=== PATIENT | female | born 1945 | race Caucasian/White ===

== ENCOUNTER 2021-12-13 15:33 | Inpatient (IN) | payer MEDICARE, SELFPAY ==
[2021-12-13 15:46] VITALS: BP 95/57; PULSE 72; RESP 19; TEMP 36.9; O2SAT 96
[2021-12-13 16:27] LABS: Abs Immature Grans 0.05 10^3/uL (0.0-0.06); Absolute Basophil Count 0.06 10^3/uL (0.0-0.2); Absolute Eosinophil Count 0.14 10^3/uL (0.0-0.7); Absolute Lymphocyte Count 2.36 10^3/uL (1.2-3.4); Absolute Monocyte Count 1.14 10^3/uL (0.1-0.8); Basophils % 0.5; Eosinophils % 1.1; HCT 32.8 % (36.0-46.0); HGB 10.7 g/dL (11.2-15.7); Immature Grans % 0.4; Lymphocytes % 18.4; MCHC 32.6 % (32.0-36.0); MCV 89 fL (80-95); MPV 9.7 fL (8.0-11.0); Monocytes % 8.9; Neutrophils % 70.7; Platelet Count 306 10^3/uL (130-400); RBC 3.69 10^6/uL (3.93-5.22); RDW 11.9 % (11.7-14.6); RDW-SD 38.1 fL; WBC 12.82 10^3/uL (4.4-10.8)
--- NOTE | 2021-12-13 16:30 | DI.CT_ITS ---
Exam(s) CT ABDOMEN PELVIS W EXAM: CT ABDOMEN PELVIS W CLINICAL HISTORY: diffuse abd pain, urinary frequency TECHNIQUE: Imaging Protocol: Axial computed tomography images with coronal and sagittal reformatted images were created and reviewed CONTRAST MATERIAL: Intravenous: Omnipaque 350 Contrast volume:100 mL Oral: No COMPARISON: No exams were available for comparison FINDINGS: ABDOMEN: Lung Bases: Atelectasis or scarring is seen in the lung bases. Liver: Normal density. No measurable mass. Portal, Superior Mesenteric, and Splenic Veins: Unremarkable. Gallbladder and Biliary Tract: Status post cholecystectomy. There is intra and extrahepatic biliary ductal dilatation. The common bile duct measures up to 1.2 cm. Pancreas: Normal density, no abnormal calcifications or inflammatory process. Spleen: Normal. Adrenals: No masses seen. Kidneys: Normal size, contour and axis. No radiodense stones or obstructive uropathy. There are few t iny hypodensities in the kidneys. They are too small for further characterization but likely reflect small cysts. No follow-up is recommended. Abdominal Aorta: Abdominal portion non-dilated. There is atherosclerosis present. Bowel: There is a thick-walled fluid collection in the right lower quadrant containing fluid and air. It does not appear to communicate with bowel. Surrounding inflammatory changes are seen. This is suspicious for an abscess. There is a thick-walled elongated tubular structure in the right lower qu adrant best appreciated on the coronal views which may represent an enlarged abnormal appendix. (Ser ies 5, images 37-47.). This may also possibly represent an inflamed terminal ileum. Peritoneal Cavity: There is a small amount of free fluid in the pelvis. Lymph Nodes: There is enlarged 2.1 cm left inguinal lymph node. Bones: Within normal limits for the patient's age. Soft Tissues: Unremarkable. PELVIS: Bladder: There is thickening of the wall of the urinary bladder. Reproductive Organs: The patient is status post hysterectomy. Lymph Nodes: Within normal limits. Bones: Within normal limits for the patient's age. IMPRESSION: Findings suspicious for an acute appendicitis with a large abscess in the right lower quadrant. Diff erential considerations include terminal ileitis.. RADIATION DOSE DELIVERED: 736.36mGy.cm Total DLP DATA REPOSITORY: All CT scans at this facility are submitted to the National Radiology Data Registry (NRDR) Dose Index Registry (DIR) with the [employer] (A[employer]). RADIATION OPTIMIZATION: All CT scans at this facility use at least one of these dose optimization te chniques: automated exposure control; mA and/or kV adjustment per patient size (includes targeted exa ms where dose is matched to clinical indication); or iterative reconstruction.
[2021-12-13 16:33] LABS: Absolute Neutrophil Count 9.06 10^3/uL (1.2-6.7)
[2021-12-13 16:43] LABS: ALT 15 U/L (14-59); AST 14 U/L (15-37); Albumin 3.4 g/dL (3.4-5.0); Alkaline Phosphatase 104 U/L (46-116); BUN 15 mg/dL (7-18); Bilirubin, Total 0.4 mg/dL (0.2-1.0); CREATININE 0.8 mg/dL (0.55-1.02); Calcium 9.1 mg/dL (8.5-10.1); Chloride 100 mmol/L (98-107); Estimated GFR 77.27 (mL/min/1.73m2); Glucose 101 mg/dL (74-106); Lipase 109 U/L (73-393); Potassium 4.2 mmol/L (3.5-5.1); Sodium 135 mmol/L (136-145); Total Protein 6.8 g/dL (6.4-8.2)
[2021-12-13] MEDS: ACETAMINOPHEN 1,000 MG/100 ML BTL 400 MG IVPB ×2 (16:51→23:44)
[2021-12-13] MEDS: Normal Saline 1,000 ML 1000 ML IV (16:52)
[2021-12-13] MEDS: Normal Saline Flush 10 ML SYR IVP ×5 (17:25→23:28)
[2021-12-13] MEDS: Omnipaque 350 MG/ML 100 ML BTL IJ (17:25)
--- NOTE | 2021-12-13 18:34 | W.ED.GENAD ---
Discharge Plan Disposition Patient Disposition: [facility]IENT Condition: Stable Discharge Details Clinical Impression: Acute perforated appendicitis Admit Date/Time: 12/13/21 19:30 Admit Provider: Melanie Farah Attending Provider: Melanie Farah Primary Care Provider: Tonya,[facility] ED Provider: Francis Delacruz Discharge Data Discharge Date/Time-TO BE ENTERED AT DEPARTURE: 12/13/21 20:25 Medical Decision Making 1550 -- 76-year-old female with a history of hysterectomy, cholecystectomy, bladder lift, chronic back pain and fibromyalgia chronically on opiates for the past 10 years presents with lower abdominal pain and urinary frequency for the past 10 days. She does admit to a feeling of urethral prolapse when having a bowel movement but denies any protrusion of tissue. Blood pressure hypertensive on arrival, 95/57. She is afebrile and appears comfortable and nontoxic. Abdomen is soft but tender across the lower quadrants. She has no CVA tenderness. Differential diagnosis includes UTI, pyelonephritis, diverticulitis, appendicitis, small bowel obstruction, colitis, gastroenteritis. We will place an IV, bolus IV fluids, screening labs, urinalysis, CT abdomen and pelvis and give a dose of IV Tylenol and reassess. Patient attempted to give a urine sample here but missed the hat. Patient states she did give a urine sample at the [facility] today which on review appears unremarkable. 1800 --labs reviewed. White blood cell count 12. Normal lipase. Patient is requesting to go home. Discussed with patient that we are awaiting her CT scan read. Patient dressed herself and states she does not want to try in the hospital as needed. She is willing to wait for the CT results. 1850 --CT reviewed and notes a possible perforated appendix. Results discussed with patient and she is agreeable to stay for admission. Dose of IV Zosyn and Dilaudid ordered. Will contact Dr. Farah. 1939 --Dr. Farah reviewed the imaging and could be consistent with a perforated appendicitis. She accepts patient for admission. Will likely plan for OR in the morning as will likely require laparotomy. Patient's vitals have remained stable. Her blood pressure is slightly soft at 105/66. Plan discussed with patient and daughter at bedside and they are agreeable. Daughter states that patient's blood pressure is usually low. Daughter and patient states that she had a recent catheterization at [facility] in [facility] which was unremarkable and performed after an abnormal stress test. No stents were placed. Dr. Farah informed. Medical Records Medical records reviewed: Yes I reviewed the patient's medical records. Imaging Data Radiologic Study: Radiologist's impression: Addendum created by Presley Chung MD on 12/13/2021 6:49:35 PM EDT: THIS REPORT CONTAINS FINDINGS THAT MAY BE CRITICAL TO PATIENT CARE. The findings were verbally communicated via telephone conference with francis delacruz at 6:48 PM EDT on 12/13/2021. The findings were acknowledged and understood. Initial report created on 12/13/2021 6:46:58 PM EDT: CT Abdomen And Pelvis With Contrast Exam date and time: 12/13/2021 5:23 PM Age: 76 years old Clinical indication: Other: Diffuse abd pain, urinary frequency; Patient HX: Hysterectomy and bladder lift; Additional info: R/O colitis, pyelo, appendicitis, diverticulitis TECHNIQUE: Imaging protocol: Computed tomography of the abdomen and pelvis with contrast. Contrast material: OMNIPAQUE 350; Contrast volume: 100 ml; Contrast route: INTRAVENOUS (IV);? COMPARISON: No relevant prior studies available. FINDINGS: Lungs: The visualized portions of the lung bases are normal. Liver: There is a mild, expected degree of intrahepatic and common bile duct dilation. Gallbladder and bile ducts: There has been a cholecystectomy. Pancreas: Normal. No ductal dilation. Spleen: Normal. No splenomegaly. Adrenal glands: Normal. No mass. Kidneys and ureters: Normal. No hydronephrosis. Stomach and bowel: Diffusely enhancing and dilated loop of small bowel within the mid-lower abdomen which appears to leading into a thick wall collection measuring 6.5 x 5.7 x 9.4 cm near the area of the terminal ileum. Patulous air-filled structure within the left mid abdomen might be compatible with an air-filled segment of small bowel, however contain free air cannot be excluded. Appendix: Diffusely thickened enhancing tubular structure draping along the posterior border of large lower abdominal/pelvic collection most likely compatible with an abnormal appendix. Intraperitoneal space: See Stomach and bowel finding. Vasculature: The vasculature demonstrates diffuse mild atherosclerotic calcification. Lymph nodes: Unremarkable. No enlarged lymph nodes. Urinary bladder: Unremarkable as visualized. Reproductive: Unremarkable as visualized. Bones/joints: Unremarkable. No acute fracture. Soft tissues: Unremarkable. IMPRESSION: Findings are suspicious for a perforated acute appendicitis with formation of a large collection within the right lower quadrant causing secondary obstruction of the distal ileum.? Differential diagnosis includes ileitis with aneurysmal dilatation of the loop of distal small causing right lower abdominal inflammatory changes. Lab Data Lab results reviewed: Yes I reviewed the patient's lab results. Labs: Laboratory Tests Range/Units 12/13/21 12/13/21 12/13/21 16:18 16:18 16:39 WBC (4.4-10.8) 10^3/uL 12.82 H RBC (3.93-5.22) 10^6/uL 3.69 L Hgb (11.2-15.7) g/dL 10.7 L Hct (36.0-46.0) % 32.8 L MCV (80-95) fL 89 MCH (27.0-33.0) pg 29.0 MCHC (32.0-36.0) % 32.6 RDW (11.7-14.6) % 11.9 Plt Count (130-400) 10^3/uL 306 MPV (8.0-11.0) fL 9.7 Immature Gran % 0.4 Neutrophils % 70.7 Lymphocytes % 18.4 Monocytes % 8.9 Eosinophils % 1.1 Basophils % 0.5 Nucleated RBC % (0.0-0.3) % 0.0 Absolute Neutrophils (1.2-6.7) 10^3/uL 9.06 H Absolute Lymphocytes (1.2-3.4) 10^3/uL 2.36 Absolute Monocytes (0.1-0.8) 10^3/uL 1.14 H Absolute Eosinophils (0.0-0.7) 10^3/uL 0.14 Absolute Basophils (0.0-0.2) 10^3/uL 0.06 Sodium (136-145) mmol/L 135 L Potassium (3.5-5.1) mmol/L 4.2 Chloride (98-107) mmol/L 100 Carbon Dioxide (21.0-32.0) mmol/L 29.0 Anion Gap (3-11) mmol/L 6.0 BUN (7-18) mg/dL 15 Creatinine (0.55-1.02) mg/dL 0.8 Est GFR (CKD-EPI 2020) (mL/min/1.73m2) 77.27 Glucose (74-106) mg/dL 101 Calcium (8.5-10.1) mg/dL 9.1 Total Bilirubin (0.2-1.0) mg/dL 0.4 AST (15-37) U/L 14 L ALT (14-59) U/L 15 Alkaline Phosphatase (46-116) U/L 104 Total Protein (6.4-8.2) g/dL 6.8 Albumin (3.4-5.0) g/dL 3.4 Lipase (73-393) U/L 109 Urine Color Cancelled Urine Clarity Cancelled Urine pH Cancelled Ur Specific [place] Cancelled Urine Protein Cancelled Urine Ketones Cancelled Urine Blood Cancelled Urine Nitrite Cancelled Urine Bilirubin Cancelled Urine Urobilinogen Cancelled Ur Leukocyte Esterase Cancelled Urine Glucose Cancelled HPI General Mode of arrival: ambulatory. Date/Time Provider Initiated Documentation: 12/13/21 15:34. Limitations to Documentation: no limitations. Information obtained by: patient. HPI Narrative: Patient is a 76-year-old female with a history of hysterectomy, cholecystectomy and bladder lift presents for lower abdominal pain for the past 10 days. Patient states she is visiting here from [place] since Friday. Patient states her symptoms started prior to traveling. She admits to constant sharp lower abdominal pain. She denies any aggravating or alleviating factors. She states when she has a bowel movement she feels that her bladder is coming out through her urethra. She states she has had normal bowel movements with a colectomy yesterday without bleeding or diarrhea. She states he has been eating normally and denies any fever, nausea or vomiting. She states she has had urinary frequency mostly at night and denies any dysuria or hematuria. She has not take any medication for symptoms. She states she does take hydrocodone 10 mg 3 times daily for her chronic back pain and fibromyalgia for the past 10 years. Related Data Home Medications Medication Instructions Recorded Confirmed alprazolam 0.25 mg tablet 0.25 mg PO DAILY 12/13/21 12/13/21 aspirin 81 mg tablet,delayed 81 mg PO DAILY 12/13/21 12/13/21 release hydrocodone bitartrate 10 mg 10 mg PO Q12H 12/13/21 12/13/21 capsule, oral only, extended rel 12 hr omeprazole 40 mg capsule,delayed 40 mg PO DIRECTED 12/13/21 12/13/21 release rosuvastatin 20 mg tablet 20 mg PO DAILY 12/13/21 12/13/21 sertraline 150 mg capsule 150 mg PO DAILY 12/13/21 12/13/21 Allergies Allergy/AdvReac Type Severity Reaction Status Date / Time hydromorphone AdvReac Intermediate really bad Unverified 12/13/21 19:20 migraine General Stated Complaint: Abd Prob ANGELICA: 3 Review of Systems All systems reviewed & are unremarkable except as noted in HPI and below Constitutional Constitutional: Reports as per HPI, Denies chills and Denies fever(s) Eyes Eyes: Denies blurry vision ENT Ears, Nose, Mouth, and Throat: Denies dizziness, Denies sore throat and Denies throat swelling Cardiovascular Cardiovascular: Denies chest pain and Denies dyspnea Respiratory Respiratory: Denies cough and Denies dyspnea Gastrointestinal Gastrointestinal: Reports abdominal pain, Denies diarrhea and Denies vomiting Genitourinary Genitourinary: Denies hematuria, Denies dysuria and Reports other (urinary frequency) Musculoskeletal Musculoskeletal: Denies back pain and Denies numbness Integumentary/Breasts Skin/Breast: Denies lesions and Denies rash Neurologic Neurologic: Denies dizziness, Denies localized weakness and Denies numbness Allergic/Immunologic Allergic/Immunologic: Denies throat swelling PFSH All Active Problems (Updated 12/17/21 @ 12:50 by Ida Mccormick MD) Atrial fibrillation (Chronic) Chronic narcotic use (Acute) Low folate (Acute) Acute on chronic blood loss anemia (Acute) 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 Chronic prescription benzodiazepine use (Acute) Chronic narcotic use (Acute) Anxiety (Chronic) Elevated lipids (Acute) Medical History Chronic back pain Fibromyalgia Hx of migraine headaches Surgical History History of bladder surgery Bladder lift History of hysterectomy Hx of cholecystectomy Social History Smoking/Tobacco Use Status: Never Smoking risk assessment performed?: Yes Alcohol Intake: never Drug use: Never Substance use type: does not use Do you feel safe at home: Yes Do you feel safe in your relationship?: Yes Exam Const General: cooperative, healthy appearing and no acute distress Orientation: alert, awake and oriented x3 HENMT Head: normal to inspection Face and sinus: normal facial exam Eyes General: appearance normal, both eyes and all related structures Pupils: PERRL EOM: EOM intact bilaterally Neck Neck: normal visual inspection and No submandibular swelling Lymphatic: no lymphadenopathy noted Chest Chest: normal inspection of the chest and no tenderness Resp Effort & Inspection: normal respiratory effort and able to speak in complete sentences Auscultation: clear to auscultation bilaterally Cardio Rate: regular rate Rhythm: regular rhythm GI Inspection: normal to inspection Palpation: soft, not firm, not rigid and tender (lower abdomen) Auscultation: hypoactive bowel sounds Back/Spine/Pelvis Thoracic/Lumbar Spine: thoracic and lumbar spine normal to inspection Pelvis: no pain with anterior-posterior compression Skin General skin exam: no rashes or lesions noted Neuro General: patient alert, patient awake and patient oriented x3 Cognition: normal cognition Speech: speech normal Motor: muscle tone normal throughout Sensory Exam: no sensory deficits noted Extrem General: normal to inspection, full ROM, capillary refill normal, no calf tenderness bilaterally and no edema Psych Appearance: grossly normal Mental Status: mental status grossly normal Speech and Movement: speech and movement normal Affect: normal affect Course Vital Signs Vital signs: Vital Signs Temperature 98.4 F 12/13/21 15:46 Pulse 72 12/13/21 15:46 Respiratory Rate 19 12/13/21 15:46 Blood Pressure 95/57 L 12/13/21 15:46 Pulse Oximetry 96 12/13/21 15:46 Temperature 98.4 F 12/13/21 15:46 Temperature Source Temporal Artery Scan 12/13/21 15:46 Pulse 72 12/13/21 15:46 Respiratory Rate 19 12/13/21 15:46 Respiratory Effort Non-Labored 12/13/21 15:51 Blood Pressure 95/57 L 12/13/21 15:46 Blood Pressure Position Sitting 12/13/21 15:46 Pulse Oximetry 96 12/13/21 15:46 Oxygen Delivery Method Room Air 12/13/21 15:46 Oxygen Flow Rate 0 12/13/21 15:46 Pain Level 5 12/13/21 16:51 Lab/Test Results Lab/Test Results: Laboratory Tests Range/Units 12/13/21 12/13/21 16:18 16:18 WBC (4.4-10.8) 10^3/uL 12.82 H RBC (3.93-5.22) 10^6/uL 3.69 L Hgb (11.2-15.7) g/dL 10.7 L Hct (36.0-46.0) % 32.8 L MCV (80-95) fL 89 MCH (27.0-33.0) pg 29.0 MCHC (32.0-36.0) % 32.6 RDW (11.7-14.6) % 11.9 Plt Count (130-400) 10^3/uL 306 MPV (8.0-11.0) fL 9.7 Immature Gran % 0.4 Neutrophils % 70.7 Lymphocytes % 18.4 Monocytes % 8.9 Eosinophils % 1.1 Basophils % 0.5 Nucleated RBC % (0.0-0.3) % 0.0 Absolute Neutrophils (1.2-6.7) 10^3/uL 9.06 H Absolute Lymphocytes (1.2-3.4) 10^3/uL 2.36 Absolute Monocytes (0.1-0.8) 10^3/uL 1.14 H Absolute Eosinophils (0.0-0.7) 10^3/uL 0.14 Absolute Basophils (0.0-0.2) 10^3/uL 0.06 Sodium (136-145) mmol/L 135 L Potassium (3.5-5.1) mmol/L 4.2 Chloride (98-107) mmol/L 100 Carbon Dioxide (21.0-32.0) mmol/L 29.0 Anion Gap (3-11) mmol/L 6.0 BUN (7-18) mg/dL 15 Creatinine (0.55-1.02) mg/dL 0.8 Est GFR (CKD-EPI 2020) (mL/min/1.73m2) 77.27 Glucose (74-106) mg/dL 101 Calcium (8.5-10.1) mg/dL 9.1 Total Bilirubin (0.2-1.0) mg/dL 0.4 AST (15-37) U/L 14 L ALT (14-59) U/L 15 Alkaline Phosphatase (46-116) U/L 104 Total Protein (6.4-8.2) g/dL 6.8 Albumin (3.4-5.0) g/dL 3.4 Lipase (73-393) U/L 109
--- NOTE | 2021-12-13 18:47 | DI.VRAD_ITS ---
Addendum created by Presley Chung MD on 12/13/2021 6:49:35 PM EDT: THIS REPORT CONTAINS FINDINGS THAT MAY BE CRITICAL TO PATIENT CARE. The findings were verbally communicated via telephone conference with francis castaneda at 6:48 PM EDT on 12/13/2021. The findings were acknowledged and understood. Initial report created on 12/13/2021 6:46:58 PM EDT: PROCEDURE INFORMATION: Exam: CT Abdomen And Pelvis With Contrast Exam date and time: 12/13/2021 5:23 PM Age: 76 years old Clinical indication: Other: Diffuse abd pain, urinary frequency; Patient HX: Hysterectomy and bladder lift; Additional info: R/O colitis, pyelo, appendicitis, diverticulitis TECHNIQUE: Imaging protocol: Computed tomography of the abdomen and pelvis with contrast. Contrast material: OMNIPAQUE 350; Contrast volume: 100 ml; Contrast route: INTRAVENOUS (IV); COMPARISON: No relevant prior studies available. FINDINGS: Lungs: The visualized portions of the lung bases are normal. Liver: There is a mild, expected degree of intrahepatic and common bile duct dilation. Gallbladder and bile ducts: There has been a cholecystectomy. Pancreas: Normal. No ductal dilation. Spleen: Normal. No splenomegaly. Adrenal glands: Normal. No mass. Kidneys and ureters: Normal. No hydronephrosis. Stomach and bowel: Diffusely enhancing and dilated loop of small bowel within the mid-lower abdomen which appears to leading into a thick wall collection measuring 6.5 x 5.7 x 9.4 cm near the area of the terminal ileum. Patulous air-filled structure within the left mid abdomen might be compatible with an air-filled segment of small bowel, however contain free air cannot be excluded. Appendix: Diffusely thickened enhancing tubular structure draping along the posterior border of large lower abdominal/pelvic collection most likely compatible with an abnormal appendix. Intraperitoneal space: See Stomach and bowel finding. Vasculature: The vasculature demonstrates diffuse mild atherosclerotic calcification. Lymph nodes: Unremarkable. No enlarged lymph nodes. Urinary bladder: Unremarkable as visualized. Reproductive: Unremarkable as visualized. Bones/joints: Unremarkable. No acute fracture. Soft tissues: Unremarkable. IMPRESSION: Findings are suspicious for a perforated acute appendicitis with formation of a large collection within the right lower quadrant causing secondary obstruction of the distal ileum. Differential diagnosis includes ileitis with aneurysmal dilatation of the loop of distal small causing right lower abdominal inflammatory changes. Dictated and Authenticated by: Presley Chung MD. Ordering:SHADI Gabriel MD
[2021-12-13 18:50] VITALS: BP 105/66; PULSE 73; TEMP 36.8; O2SAT 97
[2021-12-13] MEDS: PIPERACILLIN/TAZO 3.375 GM in Normal Saline 50 ML IVPB ×2 (19:15→23:42)
[2021-12-13] MEDS: MORPHine 4 MG/ML SYR IVP (19:25)
[2021-12-13 19:55] VITALS: BP 105/66; PULSE 73; RESP 16; TEMP 36.8; O2SAT 97
[2021-12-13 20:02] LABS: Source Nasal/Nares
[2021-12-13 20:23] LABS: Lactate 0.7 mmol/L (0.6-1.4)
[2021-12-13 20:34] LABS: COVID-19 PCR Negative (Negative)
[2021-12-13 20:38] VITALS: BP 114/67; PULSE 60; RESP 16; TEMP 37.4; O2SAT 98
[2021-12-13 20:50] LABS: ALT 16 U/L (14-59); AST 13 U/L (15-37); Albumin 3.1 g/dL (3.4-5.0); Alkaline Phosphatase 100 U/L (46-116); Anion Gap 9.6 mmol/L (3-11); BUN 14 mg/dL (7-18); Bilirubin, Total 0.5 mg/dL (0.2-1.0); CO2 25.4 mmol/L (21.0-32.0); CREATININE 0.8 mg/dL (0.55-1.02); Calcium 8.7 mg/dL (8.5-10.1); Chloride 103 mmol/L (98-107); Estimated GFR 77.27 (mL/min/1.73m2); Glucose 100 mg/dL (74-106); Potassium 3.9 mmol/L (3.5-5.1); Sodium 138 mmol/L (136-145); Total Protein 6.3 g/dL (6.4-8.2)
--- NOTE | 2021-12-13 20:59 | NUR.NOTE ---
Nursing Note: PT Request that all 4 bed rails be up
[2021-12-13] MEDS: MORPHine 2 MG/ML SYR IVP (21:01)
[2021-12-13] MEDS: Lactated Ringers 1,000 ML 125 ML IV (21:32)
[2021-12-13] MEDS: Enoxaparin 40 MG/0.4 ML SYR SC (22:13)
[2021-12-13] MEDS: HYDROcodone 10/Acetaminophen 325 TAB PO (22:14)
[2021-12-13] MEDS: ALPRAZolam 0.5 MG TAB 0.25 MG PO (22:20)
--- NOTE | 2021-12-13 22:28 | W.PM.HP.N ---
Date of service: 12/14/21 Assessment and Plan Assessment and plan (1) Acute perforated appendicitis: Status: Acute Assessment and plan: I I did discuss with the patient today that she does need to have surgery. She is starting to develop bowel obstruction from the abscess. We will try to alleviate this laparoscopically. There is a high probability or not going to be able to remove her appendix and we will have to just place a drain. Depending on the situation we also may need to do open procedure to relieve the infection. She recently had a cardiac cath for chest pain which was negative. They placed her on aspirin/statin/medication for her blood pressure. She is on chronic narcotics and benzodiazepines for chronic body pain. (2) Chronic back pain: (3) Fibromyalgia: (4) Elevated lipids: Status: Acute (5) Anxiety: Status: Chronic (6) Chronic narcotic use: Status: Acute (7) Chronic prescription benzodiazepine use: Status: Acute History of Present Illness Narrative: Patient is a 76-year old she presents emergency department today complaining of 10 days of abdominal pain. Patient is from [place] and is visiting family in [place]. She originally presented to urgent care and was referred to the emergency department. She admits to lower abdominal pain. She denies any fever chills or nausea vomiting. She does have a history of chronic fibromyalgia. She is on chronic narcotics. Today she is feeling okay. She is not running a temperature. She is still having abdominal pain. Informed consent is obtained for the procedural (explained in simple layman's terms that the pt and/or family could understand) explaining risks vs benefits and alternatives to the procedure and consequences if we do not do the procedure. Risks include but are not limited to: bleeding, infections, pneumonia, blood clots/DVT/PE, anesthesia (aspiration, damage to teeth/airway/MS/CVA//prolonged mechanical ventilation/PTX/IV infections), damage to bowel, bladder, blood vessels, ureters. Leakage from anastomosis requiring colostomy/ Wound infections requiring further surgery.?Scarring and disfigurement. Subsequent bowel obstructions from scar tissue.? Chronic pain or numbness from the incision, or hernia. She has a high probability of having to have the open procedure. Review of Systems All systems reviewed & are unremarkable except as noted in HPI and below PFSH All Active Problems (Updated 12/13/21 @ 22:33 by Melanie Farah DO) Chronic prescription benzodiazepine use (Acute) Chronic narcotic use (Acute) Anxiety (Chronic) Elevated lipids (Acute) Acute perforated appendicitis (Acute) Medical History (Updated 12/13/21 @ 22:33 by Melanie Farah DO) Chronic back pain Fibromyalgia Surgical History (Updated 12/13/21 @ 18:41 by Nery Delacruz DO) History of bladder surgery Bladder lift History of hysterectomy Hx of cholecystectomy Social History Smoking/Tobacco Use Status: Never Smoking risk assessment performed?: Yes Alcohol Intake: never Drug use: Never Substance use type: does not use Do you feel safe at home: Yes Do you feel safe in your relationship?: Yes Meds Allergies and Home Medications Allergies Allergy/AdvReac Type Severity Reaction Status Date / Time hydromorphone AdvReac Intermediate really bad Unverified 12/13/21 19:20 migraine Home Medications Medication Instructions Recorded Confirmed Type alprazolam 0.25 mg tablet 0.25 mg PO DAILY 12/13/21 12/13/21 History aspirin 81 mg tablet,delayed 81 mg PO DAILY 12/13/21 12/13/21 History release hydrocodone bitartrate 10 mg 10 mg PO Q12H 12/13/21 12/13/21 History capsule, oral only, extended rel 12 hr omeprazole 40 mg capsule,delayed 40 mg PO DIRECTED 12/13/21 12/13/21 History release rosuvastatin 20 mg tablet 20 mg PO DAILY 12/13/21 12/13/21 History sertraline 150 mg capsule 150 mg PO DAILY 12/13/21 12/13/21 History Exam Narrative Exam Narrative: PHYSICAL EXAM GENERAL APPEARANCE: Alert, healthy appearance, oriented, in no acute distress SKIN: No rashes.? No breakdown HYDRATION: Well hydrated HEAD, EYES, EARS, NECK, THROAT: Head is normocephalic, pupils equal, round, reactive to light and accommodation, ocular movement intact, sclera clear and no jaundice. ?Dentition intact. No sore throat.? No jaw pain. No thrush NECK: Supple, Trachea midline. LUNGS: normal respiration/nl chest excursion. ?Clear to auscultation B/l no R/R/W ?HEART: Regular rate and rhythm, EXTREMITY: No edema or cyanosis? no leg pain, redness, swelling.? No IV infiltration ABDOMEN:rlq pain localized rebound and guarding. She does not have good bowel sounds. She has no significant scarring or hernia from her previous abdominal surgeries. NEURO: no focal neuro deficits. Results Labs Result diagrams: 12/14/21 06:10 12/13/21 20:07 Labs: Laboratory Results - last 24 hr 12/13/21 12/13/21 12/13/21 16:18 16:18 16:39 WBC 12.82 H RBC 3.69 L Hgb 10.7 L Hct 32.8 L MCV 89 MCH 29.0 MCHC 32.6 RDW 11.9 Plt Count 306 MPV 9.7 Immature Gran % 0.4 Neutrophils % 70.7 Lymphocytes % 18.4 Monocytes % 8.9 Eosinophils % 1.1 Basophils % 0.5 Nucleated RBC % 0.0 Absolute Neutrophils 9.06 H Absolute Lymphocytes 2.36 Absolute Monocytes 1.14 H Absolute Eosinophils 0.14 Absolute Basophils 0.06 VBG Lactate Sodium 135 L Potassium 4.2 Chloride 100 Carbon Dioxide 29.0 Anion Gap 6.0 BUN 15 Creatinine 0.8 Est GFR (CKD-EPI 2020) 77.27 Glucose 101 Calcium 9.1 Total Bilirubin 0.4 AST 14 L ALT 15 Alkaline Phosphatase 104 Total Protein 6.8 Albumin 3.4 Lipase 109 Urine Color Cancelled Urine Clarity Cancelled Urine pH Cancelled Ur Specific [place] Cancelled Urine Protein Cancelled Urine Ketones Cancelled Urine Blood Cancelled Urine Nitrite Cancelled Urine Bilirubin Cancelled Urine Urobilinogen Cancelled Ur Leukocyte Esterase Cancelled Urine Glucose Cancelled COVID-19 Source SARS-CoV-2 (PCR) 12/13/21 12/13/21 12/13/21 20:00 20:07 20:07 WBC RBC Hgb Hct MCV MCH MCHC RDW Plt Count MPV Immature Gran % Neutrophils % Lymphocytes % Monocytes % Eosinophils % Basophils % Nucleated RBC % Absolute Neutrophils Absolute Lymphocytes Absolute Monocytes Absolute Eosinophils Absolute Basophils VBG Lactate 0.7 Sodium 138 Potassium 3.9 Chloride 103 Carbon Dioxide 25.4 Anion Gap 9.6 BUN 14 Creatinine 0.8 Est GFR (CKD-EPI 2020) 77.27 Glucose 100 Calcium 8.7 Total Bilirubin 0.5 AST 13 L ALT 16 Alkaline Phosphatase 100 Total Protein 6.3 L Albumin 3.1 L Lipase Urine Color Urine Clarity Urine pH Ur Specific [place] Urine Protein Urine Ketones Urine Blood Urine Nitrite Urine Bilirubin Urine Urobilinogen Ur Leukocyte Esterase Urine Glucose COVID-19 Source Nasal/Nares SARS-CoV-2 (PCR) Negative Last Vital Signs Temp 37.4 C 12/13/21 20:38 Pulse 60 12/13/21 20:38 Resp 16 12/13/21 20:38 BP 114/67 12/13/21 20:38 Pulse Ox 98 12/13/21 20:38
[2021-12-13 22:39] VITALS: BP 114/62; PULSE 60; RESP 18; TEMP 36.6; O2SAT 98
[2021-12-13] MEDS: MORPHine 2 MG/ML SYR 4 MG IVP (23:00)
[2021-12-13] MEDS: Pantoprazole 40 MG VIAL IVP (23:29)
[2021-12-14] VITALS (53 sets, daily range): BP systolic 93–117; BP diastolic 45–62; PULSE 60–77; RESP 8–25; TEMP 36.4–37.4; O2SAT 92–100; BMI 21.5
--- NOTE | 2021-12-14 | DI.RAD_ITS ---
Exam(s) XR PORTABLE CHEST AP POST LINE EXAM: XR PORTABLE CHEST AP POST LINE CLINICAL HISTORY: Central line placement TECHNIQUE: 2D digital imaging was performed of the chest. One image was obtained. An AP view was ob tained. COMPARISON: No exams were available for comparison FINDINGS: MEDIASTINUM: Normal. HEART: Normal. PULMONARY VASCULATURE: Normal. LUNGS: Clear. PLEURAL SPACE: No pleural effusion or pneumothorax. BONE:Within normal limits for the patient's age. OTHER FINDINGS:The right IJ line is in good position with the tip at the junction of the superior ravindra a cava and right atrium. The nasogastric tube passes into the stomach below the hemidiaphragms. The tip tip is not visualized. IMPRESSION: 1. Tip of the right IJ line is in good position at the junction of the superior vena cava and right a trium. 2. Findings were discussed with the primary care team at 1:25 p.m. on 12/14/2021. DATA REPOSITORY: RADIATION DOSE DELIVERED:
[2021-12-14] MEDS: PIPERACILLIN/TAZO 3.375 GM in Normal Saline 50 ML IVPB ×3 (05:02→18:17)
[2021-12-14] MEDS: MORPHine 2 MG/ML SYR 4 MG IVP (05:03)
[2021-12-14] MEDS: Normal Saline Flush 10 ML SYR IVP ×3 (05:03→15:19)
--- NOTE | 2021-12-14 06:38 | NUR.NOTE ---
Nursing Note: Patient reports that she prefers to have all side rails up on bed.
[2021-12-14 06:56] LABS: Abs Immature Grans 0.05 10^3/uL (0.0-0.06); Absolute Basophil Count 0.04 10^3/uL (0.0-0.2); Absolute Lymphocyte Count 1.78 10^3/uL (1.2-3.4); Absolute Monocyte Count 0.87 10^3/uL (0.1-0.8); Absolute Neutrophil Count 6.47 10^3/uL (1.2-6.7); Basophils % 0.4; Eosinophils % 2.1; HCT 30.4 % (36.0-46.0); HGB 10.6 g/dL (11.2-15.7); Immature Grans % 0.5; Lymphocytes % 18.9; MCH 30.6 pg (27.0-33.0); MCHC 34.9 % (32.0-36.0); MCV 88 fL (80-95); MPV 10.2 fL (8.0-11.0); Monocytes % 9.2; Neutrophils % 68.9; Platelet Count 281 10^3/uL (130-400); RBC 3.46 10^6/uL (3.93-5.22); RDW 11.9 % (11.7-14.6); RDW-SD 38.4 fL; WBC 9.41 10^3/uL (4.4-10.8)
[2021-12-14 08:19] LABS: Procalcitonin < 0.1 ng/mL
--- NOTE | 2021-12-14 08:44 | ANES.PREOP_ITS ---
General Info Date of Service Date Performed: 12/14/21 Height: 5 ft 10 in Weight: 68.039 kg Body Mass Index (BMI): 21.5 Surgical Procedure: Operation Date: 12/14/21 09:10 Proposed Procedure Side Surgeon p Appendectomy Laparoscopic Melanie Farah, Meds Allergies and Home Medications Allergies Allergy/AdvReac Type Severity Reaction Status Date / Time hydromorphone AdvReac Intermediate really bad Unverified 12/13/21 19:20 migraine Home Medication Medication Instructions Recorded alprazolam 0.25 mg tablet 0.25 mg PO DAILY 12/13/21 aspirin 81 mg tablet,delayed 81 mg PO DAILY 12/13/21 release hydrocodone bitartrate 10 mg 10 mg PO Q12H 12/13/21 capsule, oral only, extended rel 12 hr omeprazole 40 mg capsule,delayed 40 mg PO DIRECTED 12/13/21 release rosuvastatin 20 mg tablet 20 mg PO DAILY 12/13/21 sertraline 150 mg capsule 150 mg PO DAILY 12/13/21 Current Visit Medications: Current Medications Generic Name Dose Route Start Last Admin Trade Name Freq PRN Reason Stop Dose Admin Hydrocodone Bitart/Acetaminophen 1 tab 12/14/21 08:30 Hydrocodone 10/Acetaminophen 325 Tab PO TID DIAZ Alprazolam 0.25 mg 12/13/21 22:00 12/13/21 22:20 Alprazolam 0.5 Mg Tab PO 0.25 mg HS DIAZ Administration Enoxaparin Sodium 40 mg 12/13/21 22:00 12/13/21 22:13 Enoxaparin 40 Mg/0.4 Ml Syr SC 40 mg Q24H DIAZ Administration Sodium Chloride 500 mls @ 0 mls/hr 12/13/21 19:30 Saline 500ml Bag IV PRN PRN As Directed Ringer's Solution 1,000 mls @ 125 mls/hr 12/13/21 19:30 12/14/21 00:58 IV 125 mls/hr INFUSION DIAZ Infusion Piperacillin Sod/Tazobactam 50 mls @ 100 mls/hr 12/14/21 00:00 12/14/21 05:02 Sod 3.375 gm/ Sodium Chloride IVPB 100 mls/hr Q6H DIAZ Administration Protocol Acetaminophen 1,000 mg in 100 mls @ 400 mls/hr 12/14/21 00:00 12/14/21 00:05 Ofirmev IVPB Infused Q8H DIAZ Infusion IV Miscellaneous Supplies 1 each 12/13/21 19:30 Iv Access IV DIRECTED DIAZ Lorazepam 0.5 mg 12/13/21 19:57 Lorazepam 2 Mg/Ml Vial IVP Q6H PRN PRN Morphine Sulfate 4 mg 12/13/21 21:09 12/14/21 05:03 Morphine 2 Mg/Ml Syr IVP 4 mg Q1H PRN PRN Administration Ondansetron HCl 4 mg 12/13/21 19:30 Ondansetron 4 Mg/2 Ml Vial IVP Q4H PRN PRN Pantoprazole Sodium 40 mg 12/14/21 00:00 12/13/21 23:29 Pantoprazole 40 Mg Vial IVP 40 mg Q24H DIAZ Administration Sertraline HCl 150 mg 12/14/21 08:30 Sertraline 50 Mg Tab PO DAILY DIAZ Sodium Chloride 0 ml 12/13/21 19:30 Normal Saline Flush 10 Ml Syr IVP PRN PRN PFSH Active Problems Active Problems: Problem Status Onset Code Chronic prescription benzodiazepine use Z79.899 Chronic narcotic use F11.90 Anxiety F41.9 Elevated lipids E78.5 Acute perforated appendicitis K35.32 Medical History Medical History (Updated 12/14/21 @ 08:47 by Jael Rios MD) Chronic back pain Fibromyalgia Hx of migraine headaches Surgical History Surgical History (Updated 12/13/21 @ 18:41 by Nery Delacruz DO) History of bladder surgery Bladder lift History of hysterectomy Hx of cholecystectomy Tobacco Smoking/Tobacco Use Status: Never Alcohol Alcohol Intake: never Substance Use Substance use: Never Substance use type: does not use Vital Signs and Lab Results Vital Signs Most Recent Vital Signs in EMR: Most Recent Vital Signs Temp Pulse Resp BP Pulse Ox 36.7 C 60 16 104/62 98 12/14/21 08:09 12/14/21 08:09 12/14/21 08:09 12/14/21 08:09 12/14/21 08:09 Lab Results Result Diagrams: 12/14/21 06:10 12/13/21 20:07 Blood Type / Crossmatch: No Data to Display Complete Blood Count: White Blood Count 9.41 10^3/uL (4.4-10.8) 12/14/21 06:10 Red Blood Count 3.46 10^6/uL (3.93-5.22) L 12/14/21 06:10 Hemoglobin 10.6 g/dL (11.2-15.7) L 12/14/21 06:10 Hematocrit 30.4 % (36.0-46.0) L 12/14/21 06:10 Platelet Count 281 10^3/uL (130-400) 12/14/21 06:10 Venous Blood Lactate 0.7 mmol/L (0.6-1.4) 12/13/21 20:07 Complete Metabolic Panel: Sodium 138 mmol/L (136-145) 12/13/21 20:07 Potassium 3.9 mmol/L (3.5-5.1) 12/13/21 20:07 Chloride 103 mmol/L (98-107) 12/13/21 20:07 Carbon Dioxide 25.4 mmol/L (21.0-32.0) 12/13/21 20:07 BUN 14 mg/dL (7-18) 12/13/21 20:07 Creatinine 0.8 mg/dL (0.55-1.02) 12/13/21 20:07 Est GFR (CKD-EPI 2020) 77.27 (mL/min/1.73m2) 12/13/21 20:07 Magnesium 2.0 mg/dL (1.8-2.4) 12/14/21 06:10 Calcium 8.7 mg/dL (8.5-10.1) 12/13/21 20:07 Albumin 3.1 g/dL (3.4-5.0) L 12/13/21 20:07 Glucose 100 mg/dL (74-106) 12/13/21 20:07 Liver Function Panel: Alanine Aminotransferase (ALT/SGPT) 16 U/L (14-59) 12/13/21 20: 07 Aspartate Amino Transf (AST/SGOT) 13 U/L (15-37) L 12/13/21 20: 07 Coagulation Panel: No Data to Display Cardiac Panel: No Data to Display Arterial Blood Gas: No Data to Display Venous Blood Gas: No Data to Display Pancreas Panel: Lipase 109 U/L (73-393) 12/13/21 16:18 Thyroid Panel: No Data to Display Infectious Disease: Coronavirus (COVID-19)(PCR) Negative (Negative) 12/13/21 20:00 Coronavirus 2019 Source Nasal/Nares 12/13/21 20:00 Blood Cultures: No Data to Display Toxicology Panel: No Data to Display Anesthesia Assessment and Plan Anesthesia History Personal History: No History of Anesthesia Complications Family History: No Family History of Anesthesia Complications Exercise Tolerance Exercise Tolerance: Metabolic Equivalents>4 Pertinent Negatives Pertinent Negatives: No Symptoms of GERD, No Major Cardiovascular Symptoms or Complaints, No Major Pulmonary Symptoms or Complaints and No History of CVA/TIA Cardiac & Pulmonary Exam Cardiac Exam: Normal S1/S2 Heart Sounds Pulmonary Exam: Clear Bilateral Breath Sounds Implantable Cardiac Device Does patient have a Pacemaker or an ICD?: No Airway Exam Known Difficult Airway: No Mallampati Class: 2 Mouth Opening: Normal (> 3cm) Thyromental Distance: Greater than 3 cm Neck Range of Motion: Full ROM Neck Circumference: Normal Teeth Condition: Normal Dentition and Generalized Poor Dentition ASA Classification ASA Score: ASA 2 Emergency Case?: Yes NPO Status NPO Status: NPO Clears >2 hours, Solids >8 hours Anesthesia Plan Resuscitation Status: Full Code Anesthesia Technique: General Anesthesia Airway Planned: Endotracheal Tube Monitors Used: Standard Monitors
--- NOTE | 2021-12-14 08:46 | W.PM.PROGNOT ---
Date of Service Date of service: 12/14/21 Time of Service: 08:46 Assessment and Plan Assessment and plan (1) Acute perforated appendicitis: Status: Acute Assessment and plan: To OR today 30 minute discussion with family regarding the patients diagnoses and surgery. We reviewed risks, benefits and complications. (2) Hx of migraine headaches: Assessment and plan: Per family their Mom has a history of Migrains and normally takes imitrex for it. Subjective Subjective Interval history since last seen: Patients family wanted to discuss the plan for their Mom. ?I did discuss with the family today that she does need to have surgery.? She is starting to develop bowel obstruction from the abscess.? We will try to alleviate this laparoscopically.? There is a high probability of not going to be able to remove her appendix and we will have to just place a drain.? Depending on the situation we also may need to do open procedure to relieve the infection. She recently had a cardiac cath for chest pain which was negative.? They placed her on aspirin/statin/medication for her blood pressure. She is on chronic narcotics and benzodiazepines for chronic body pain. Objective Last Vital Signs Temp 98.1 F 12/14/21 08:09 Pulse 60 12/14/21 08:09 Resp 16 12/14/21 08:09 BP 104/62 12/14/21 08:09 Pulse Ox 98 12/14/21 08:09 Laboratory Results - last 24 hr 12/13/21 12/13/21 12/13/21 16:18 16:18 16:39 WBC 12.82 H RBC 3.69 L Hgb 10.7 L Hct 32.8 L MCV 89 MCH 29.0 MCHC 32.6 RDW 11.9 Plt Count 306 MPV 9.7 Immature Gran % 0.4 Neutrophils % 70.7 Lymphocytes % 18.4 Monocytes % 8.9 Eosinophils % 1.1 Basophils % 0.5 Nucleated RBC % 0.0 Absolute Neutrophils 9.06 H Absolute Lymphocytes 2.36 Absolute Monocytes 1.14 H Absolute Eosinophils 0.14 Absolute Basophils 0.06 VBG Lactate Sodium 135 L Potassium 4.2 Chloride 100 Carbon Dioxide 29.0 Anion Gap 6.0 BUN 15 Creatinine 0.8 Est GFR (CKD-EPI 2020) 77.27 Glucose 101 Calcium 9.1 Magnesium Total Bilirubin 0.4 AST 14 L ALT 15 Alkaline Phosphatase 104 Total Protein 6.8 Albumin 3.4 Lipase 109 Procalcitonin Urine Color Cancelled Urine Clarity Cancelled Urine pH Cancelled Ur Specific [place] Cancelled Urine Protein Cancelled Urine Ketones Cancelled Urine Blood Cancelled Urine Nitrite Cancelled Urine Bilirubin Cancelled Urine Urobilinogen Cancelled Ur Leukocyte Esterase Cancelled Urine Glucose Cancelled COVID-19 Source SARS-CoV-2 (PCR) 12/13/21 12/13/21 12/13/21 20:00 20:07 20:07 WBC RBC Hgb Hct MCV MCH MCHC RDW Plt Count MPV Immature Gran % Neutrophils % Lymphocytes % Monocytes % Eosinophils % Basophils % Nucleated RBC % Absolute Neutrophils Absolute Lymphocytes Absolute Monocytes Absolute Eosinophils Absolute Basophils VBG Lactate 0.7 Sodium 138 Potassium 3.9 Chloride 103 Carbon Dioxide 25.4 Anion Gap 9.6 BUN 14 Creatinine 0.8 Est GFR (CKD-EPI 2020) 77.27 Glucose 100 Calcium 8.7 Magnesium Total Bilirubin 0.5 AST 13 L ALT 16 Alkaline Phosphatase 100 Total Protein 6.3 L Albumin 3.1 L Lipase Procalcitonin Urine Color Urine Clarity Urine pH Ur Specific [place] Urine Protein Urine Ketones Urine Blood Urine Nitrite Urine Bilirubin Urine Urobilinogen Ur Leukocyte Esterase Urine Glucose COVID-19 Source Nasal/Nares SARS-CoV-2 (PCR) Negative 12/14/21 12/14/21 12/14/21 06:10 06:10 06:10 WBC 9.41 RBC 3.46 L Hgb 10.6 L Hct 30.4 L MCV 88 MCH 30.6 MCHC 34.9 D RDW 11.9 Plt Count 281 MPV 10.2 Immature Gran % 0.5 Neutrophils % 68.9 Lymphocytes % 18.9 Monocytes % 9.2 Eosinophils % 2.1 Basophils % 0.4 Nucleated RBC % 0.0 Absolute Neutrophils 6.47 Absolute Lymphocytes 1.78 Absolute Monocytes 0.87 H Absolute Eosinophils 0.20 Absolute Basophils 0.04 VBG Lactate Sodium Potassium Chloride Carbon Dioxide Anion Gap BUN Creatinine Est GFR (CKD-EPI 2020) Glucose Calcium Magnesium 2.0 Total Bilirubin AST ALT Alkaline Phosphatase Total Protein Albumin Lipase Procalcitonin < 0.1 Urine Color Urine Clarity Urine pH Ur Specific [place] Urine Protein Urine Ketones Urine Blood Urine Nitrite Urine Bilirubin Urine Urobilinogen Ur Leukocyte Esterase Urine Glucose COVID-19 Source SARS-CoV-2 (PCR)
[2021-12-14] MEDS: Lactated Ringers 1,000 ML 125 ML IV ×3 (08:52→23:20)
[2021-12-14] MEDS: Ondansetron 4 MG/2 ML VIAL IVP (08:54)
--- NOTE | 2021-12-14 10:47 | INITIAL_ITS ---
- If Service Date Differs Date of service: 12/14/21 Time of Service: 10:47 Care Management Initial Assess REASON FOR HOSPITALIZATION:: Acute perforated appendicitis PAST MEDICAL HISTORY/PAST SURGICAL HISTORY:: All Active Problems (Updated 12/13/21 @ 22:33 by Melanie Farah DO). Chronic prescription benzodiazepine use (Acute). Chronic narcotic use (Acute). Anxiety (Chronic). Elevated lipids (Acute). Acute perforated appendicitis (Acute). Medical History (Updated 12/13/21 @ 22:33 by Melanie Farah DO). Chronic back pain. Fibromyalgia. Surgical History (Updated 12/13/21 @ 18:41 by Nery Delacruz DO). History of bladder surgery. Bladder lift. History of hysterectomy. Hx of cholecystectomy PREVIOUS FUNCTIONAL STATUS/SOCIAL/FAMILY SUPPORTS:: Ofe lives in [place] with her daughter Tavia Florence. Ofe has been in the area since last Friday visiting her son Geo in [place], [place]. Ofe identifies herself as Ofe's DPOA/HCA, and will try to obtain documentation. CURRENT FUNCTIONAL STATUS:: Ofe was transferred to the ICU, following her exploritory Laparoscopy. She is drowsy from anesthesia and is accompanied by her children Tavia, Celena and Geo. During this interview, Dr. Farah entered the room and discussed her surgical findings with family. ADVANCE DIRECTIVES:: None on file at [facility]. Documents are located in [place], Tavia Florence is trying to obtain a copy. Tavia Zambrano indentifies herself as Ofe's DPOA and HCA. CM to follow. Has patient been provided with info about the portal/API?: Yes Did the patient sign up for the portal?: No CODE STATUS:: Full Code INSURANCE COVERAGE / FINANCIAL ISSUES:: [facility]. [facility] CURRENT HOME/COMMUNITY SERVICES/EQUIPMENT:: Uses a cane. Per daughter Tavia: Ofe has neuropathy in her hands, feet and legs. PRIMARY CARE PHYSICIAN:: Dr. Adán Padron POTENTIAL DISCHARGE NEEDS:: Discharge plan of care, plan to follow up with outpatient providers. New [facility] RN/PT. PATIENT/FAMILY EDUCATION NEEDS:: Review discharge instructions, limitations, medications and plan to follow up with community providers. Discuss ask me three. TRANSPORTATION:: Via private vehicle with family. PLAN:: Anticipate, Ofe will discharge to her sons home in [place] when medically ready, per Surgery. New [facility] services will be ordered if indicated. Ofe plans to fly back to [place], when she is able to safely transport. CM will continue to follow.
--- NOTE | 2021-12-14 10:55 | BOWEL_PTH ---
PATIENT: Oef Woodard LOC: U#:[id number] AGE/SX: 76/F ROOM: RE12/13/[address]: Melanie Farah : 1945 BED: A DIS: 12/22/2021 SPEC #: [id number] RECD: 12/14/21 13:10 STATUS: SCOTTY REQ #: [id number] DORY: 12/14/21 10:[address]: Melanie Farah DEPT: Surgical Specimen RECD BY: Tasia Ruiz ENTERED: 12/14/21 13:12 SP TYPE: Bowel OTHR DR: No Local Tissues: 1 - BOWEL RESECTION(OTHER) 2 - BLADDER BIOPSY Procedures: IMMUNOPEROXIDASE STAIN GROSS AND MICRO LEVEL 5 GROSS AND MICRO LEVEL 6 Single Probe In Situ Hybridization MIB-1 IHC Semi Quantative % B-Cell Lymphoma, FISH, Tissue BLYM, Additional Probe MYC IHC Stain Comments: [id number]
[2021-12-14] MEDS: Bupivacaine 0.5% Pres-Free W/EPI 30 ML VIAL (11:51)
--- NOTE | 2021-12-14 12:03 | ROE_ITS ---
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 Exploratory laparotomy. The cecum and terminal ileal resection with primary anastomosis. Resection tumor adherent to the bladder SURGEON: Melanie Farah ASSISTING SURGEON: Jael Rios ANESTHESIA TYPE: Local By Surgeon, General:No Airway and Primary Nerve Block Refer to Anesthesia Record ESTIMATED BLOOD LOSS: 50 PATHOLOGY: other COMPLICATIONS: None Patient was transported to: PACU Patient's condition: critical Procedure Description: Patient is a 76-year-old female who presented to the ER last night with symptoms consistent with a ruptured appendix. A CT scan showed what was presumed a ruptured appendix and an abscess/phlegmon.. Informed consent is obtained explaining risks and benefits of the procedure including but not limited to: Bleeding, infection, pneumonia, blood clots. Damage to bowel, bladder, blood vessels, or ureters. Attempted laparoscopy possible laparotomy. Chronic pain or chronic numbness. Postop abscesses, anastomotic failure, and other on for told complications. Patient is brought to the operating room suite and placed in supine position. Anesthesia is administered per the department of anesthesia. Adequate IV access. Instituted by anesthesia. Vallejo catheter and NG tube are placed. Zosyn is given preop. Patient is prepped and draped in the usual sterile fashion using a ChloraPrep scrub solution. Timeout is performed. 20 cc of quarter percent Marcaine with epi is used for local anesthetization. A stab incision is created in the umbilicus using a #11 blade. A Hemostat is used to dissect down to the fascia. The varies needle is inserted. Drop test is positive. Insufflation is begun. When 15 mmHg are noted on the monitor, a #5 port is inserted into the abdomen. The scope is inserted through the port which shows no damage to underlying structures. A 5 mm port is then placed in the suprapubic position under direct visualization following creation of local field block, as well as a 12 mm port in the left lower quadrant. Upon visual inspection of the abdomen, she has had a previous gallbladder removal and a complete hysterectomy. There is a significant amount of green fluid along both gutters, that is assumed to be purulent. This is suctioned. There is an adherent mass up to the bladder. This appears to be the cecum. This is densely adhered and cannot be taken apart laparoscopically. At this point and the decision is made to convert the procedure to open. A vert ical midline incision is made starting at pubis and 4 inches superiorly; #10 blade is used to make the incision, Following creation of local field block. Electrocautery is used to provide hemostasis and dissect down to the peritoneum. the peritoneum is entered and the incision carried superiorly and inferiorly. Morales's are used for retractors. Cultures are taken of the abdomen-peritoneal fluid. Morales's are used for retraction. The mass is intimately adhered to the bladder. This is taken down by bluntly. Once this is taken down, it does appear that there is a tumor in the terminal ileum that has eroded through the terminal ileum, and then adhered down to the bladder. The appendix is involved in this mass. However the appendix appears grossly normal. Bowel clamps is 20 cm proximal to the mass, to prevent any further spillage. The abdomen is explored. The small bowel is run. There is no adhesions or other tumor within the small bowel. There is no other tumor within the colon. There does not appear to be tumor studding on the peritoneal sidewall. There is no tumor in the omentum. The liver and spleen are free of tumor. There is tumor on the bladder. There is probably 4 x 3 cm. At this point it is decided to do a terminal ileum and cecal resection. The white line of Toldt was taken down on the right. The right colon is then divided using a OMAIRA 80. Approximately a third of the right colon is sacrificed. The mesentery is then excised using the LigaSure. There are multiple enlarged nodes within the omentum. The omentum is taken down to the root, using the ligasure. Approximately 5 inches of the terminal ileum was excised. A rent is made in the mesentery of the lieum, and the OMAIRA is placed across the ileum and fired. The specimen is passed off the field. A yryp-dt-[id number] anastomosis is created in a standard fashion through the Using a OMAIRA 80. a good lumen is palpated and there is no bleeding noted. A TA 45 is used to complete the anastomosis. The staple line ends are oversewn with 3-0 silk. A stay suture is placed in the distal portion of the anastomosis with 3-0 silk. Bowel clamps are removed. A rent in the mesentery is closed with 3-0 Vicryl. The abdomen is copiously irrigated with 2 L of saline breaking up all pockets over the liver/pelvis and omentum. 15 mm drain was then brought through LLQ port site and placed in the pelvis in the left gutter. The fascia under the port is closed with a 0 Vicryl. The drain is sewn in with a 3-0 Prolene. All sponge needle and instrument counts are correct. 2 pieces of Interceed are placed directly under the incision. Peritoneum was closed with 0 Vicryl in running fashion. Fascia was closed with #1 PDS in a running fashion. The fat pad is then irrigated. Skin is closed with lilibeth. A gibson's wound VAC is placed over the incision and a good seal was obtained. A-line and central line are placed by the department of anesthesia. Bilateral tap blocks are done by anesthesia as well. Patient is transferred to the recovery room in stable condition. Family is apprised of the findings at surgery. Patient will be admitted to the ICU postoperatively. This document was created with voice activated software and may contain errors.
--- NOTE | 2021-12-14 13:02 | W.ANESVAS ---
Arterial Line Placement Date Performed: 12/14/21 Procedure Time: 12:13 Procedure Location: Operating Room Requesting Provider: Melanie Farah Timeout Performed: Yes Sedation Given (Indicate Dose Given): No Sedation given Patient Mental Status: Performed under general anesthesia Sterility: Hand Hygiene, Surgical Cap, Surgical Mask, Sterile Gloves, Sterile Drape/Sheet and Chlorhexidine Laterality: Right Insertion Site: Radial Arterial Line Catheter: 20G Arrow Arterial Line Procedure: Vessel accessed with catheter over needle, Guidewire placed with ease, Catheter placed without resistance and Guidewire removed Dressing: Tegaderm Applied Ultrasound: Used to wendy site Number of Attempts (See previous attempts in note section): 1 Procedure Tolerated: No Complications and Patient tolerated well Procedure Outcome: Successful Performed By: Geo Dobson
--- NOTE | 2021-12-14 13:07 | W.ANESNERVE ---
Nerve Block Single Injection Procedure Date and Time Date Performed: 12/14/21 Procedure Start: 12:19 Location Where Procedure Performed Procedure Location: Operating Room Procedure Stop: 12:25 Reason Performed: Postoperative Analgesia Requesting Provider: Melanie Farah Timeout Performed Timeout Performed: Yes Monitoring Used ECG, Blood Pressure, SpO2 and ETCO2 Sterility Sterility: Hand Hygiene, Surgical Cap, Surgical Mask, Sterile Gloves and Chlorhexidine Sedation Given During Procedure Sedation Given (Indicate Dose Given): No Sedation given Patient Mental Status Patient Mental Status: Performed under general anesthesia Nerve Block 1st Nerve Block: Laterality: Bilateral Block Type: TAP Bilateral Needle / Catheter Used: 100mm SonoPlex II Local Anesthetic Bolus (Indicate Dose Given): Injected in 3-5ml increments after negative blood aspiration, Half of Total block solution given into each side and Bupivacaine 0.25% Dose:: 40 ml Additives (Indicate Dose Given): Precedex Dose:: 70 mcg Ultrasound: Sterile probe cover and gel used Ultrasound Image Saved?: Yes Nerve Stimulator: Not Used Paresthesia: None Procedure Tolerated: No Complications and Patient tolerated well Procedure Outcome: Successful Performed By: Geo Dobson
--- NOTE | 2021-12-14 13:11 | W.ANESVAS ---
Central Venous Line Placement Date Performed: 12/14/21 Procedure Time: 11:13 Procedure Location: Operating Room Requesting Provider: Melanie Farah Standard Monitors Applied: ECG, Blood Pressure, SpO2 and ETCO2 Pt. Position: Supine Timeout Performed: Yes Sedation Given (Indicate Dose Given): No Sedation given Patient Mental Status: Performed under general anesthesia Sterility: Hand Hygiene, Surgical Cap, Surgical Mask, Sterile Gloves, Sterile Drape/Sheet, Sterile Gown, Eye Protection and Chlorhexidine Laterality: Right Insertion Site: Internal Jugular (IJ) Central Line Type: 7 Romansh and Triple Lumen Catheter Insertion Procedure: Vessel accessed with needle, Guidewire placed with ease, Extension tubing fills with blood, then empties easily with gravity, Dermatotomy (skin hal) made with scalpel, Dilator placed without resistance, Introducer/Catheter placed without resistance, Guidewire removed and Claves placed, blood withdrawn, ports flushed and clamped Dressing: Sorbaview Dressing Placed, Chlorhexidine Dressing, BioPatch and Sutured in Place Catheter Depth at Skin (cm): 19 Placement Confirmation: Confirmation X-Ray Ordered Ultrasound: Sterile probe cover and gel used Ultrasound Image Saved?: Yes Number of Attempts (See previous attempts in note section): 1 Procedure Tolerated: No Complications and Patient tolerated well Procedure Outcome: Successful Performed By: Geo Dobson
[2021-12-14] MEDS: ACETAMINOPHEN 1,000 MG/100 ML BTL 400 MG IVPB (15:15)
[2021-12-14] MEDS: Normal Saline 500 ML IV (15:15)
--- NOTE | 2021-12-14 15:34 | W.PM.PROGNOT ---
Date of Service Date of service: 12/14/21 Time of Service: 13:30 Assessment and Plan Assessment and plan (1) Perforated intestine, nontraumatic: Status: Acute Assessment and plan: The patient is doing well post-op. Their pain is well controlled. They are having no nausea or vomiting. The pt is not having any chest pain or SOB, productive cough; no calf pain or swelling. The pt is making good urine lt pink. High dose MS ACUPRESSURE THERAPIST intiated. The case was discussed with nursing and patient?s family, and prognosis reviewed. All of the pt's home medications were addressed and adjusted accordingly for their oral intact status. Patient had a cardiac cath prior to coming to this debridement. Her coronary arteries were normal. Her king maker wanted her started on baby aspirin, statin, and a antihypertensive medication. However patient had been noted to be having vagal episode, and this is essentially why the cath was done. HEENT: no jaundice. no eye pain/drainage/redness/swelling. Mild sore throat Cardio- NSR no chest pain, BP stable. Pulm: no sob or productive cough. no hemoptysis Incision- clean/dry. Dressing intact no excessive bleeding or drainage. PICOS in place. urine- lt pink NGT- 300cc since insertion CXR: no ptx I discussed with the patient and/or there family about the findings in surgery and the pt's progress. We reviewed expectations for progress in the hospital; what the pt could expect for recovery time and length of stay. We discussed the importance of walking and pulmonary toilet to avoid blood clots and pneumonia. Continue current plans for pulmonary toilet, GI and DVT prophylaxis. We shall continue the current plan for pain management as it is at an appropriate level, and working well for the pt. Appropriate measures will be taken for constipation prevention, and this was also reviewed with the pt. The wound care plan was reviewed with nursing as well. 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: Status: Acute Objective Last Vital Signs Temp 36.7 C 12/14/21 08:09 Pulse 72 12/14/21 15:01 Resp 16 12/14/21 15:06 BP 105/56 L 12/14/21 15:01 Pulse Ox 99 12/14/21 15:06 Laboratory Results - last 24 hr 12/13/21 12/13/21 12/13/21 16:18 16:18 16:39 WBC 12.82 H RBC 3.69 L Hgb 10.7 L Hct 32.8 L MCV 89 MCH 29.0 MCHC 32.6 RDW 11.9 Plt Count 306 MPV 9.7 Immature Gran % 0.4 Neutrophils % 70.7 Lymphocytes % 18.4 Monocytes % 8.9 Eosinophils % 1.1 Basophils % 0.5 Nucleated RBC % 0.0 Absolute Neutrophils 9.06 H Absolute Lymphocytes 2.36 Absolute Monocytes 1.14 H Absolute Eosinophils 0.14 Absolute Basophils 0.06 VBG Lactate Sodium 135 L Potassium 4.2 Chloride 100 Carbon Dioxide 29.0 Anion Gap 6.0 BUN 15 Creatinine 0.8 Est GFR (CKD-EPI 2020) 77.27 Glucose 101 Calcium 9.1 Magnesium Total Bilirubin 0.4 AST 14 L ALT 15 Alkaline Phosphatase 104 Total Protein 6.8 Albumin 3.4 Lipase 109 Procalcitonin Urine Color Cancelled Urine Clarity Cancelled Urine pH Cancelled Ur Specific [place] Cancelled Urine Protein Cancelled Urine Ketones Cancelled Urine Blood Cancelled Urine Nitrite Cancelled Urine Bilirubin Cancelled Urine Urobilinogen Cancelled Ur Leukocyte Esterase Cancelled Urine Glucose Cancelled COVID-19 Source SARS-CoV-2 (PCR) 12/13/21 12/13/21 12/13/21 20:00 20:07 20:07 WBC RBC Hgb Hct MCV MCH MCHC RDW Plt Count MPV Immature Gran % Neutrophils % Lymphocytes % Monocytes % Eosinophils % Basophils % Nucleated RBC % Absolute Neutrophils Absolute Lymphocytes Absolute Monocytes Absolute Eosinophils Absolute Basophils VBG Lactate 0.7 Sodium 138 Potassium 3.9 Chloride 103 Carbon Dioxide 25.4 Anion Gap 9.6 BUN 14 Creatinine 0.8 Est GFR (CKD-EPI 2020) 77.27 Glucose 100 Calcium 8.7 Magnesium Total Bilirubin 0.5 AST 13 L ALT 16 Alkaline Phosphatase 100 Total Protein 6.3 L Albumin 3.1 L Lipase Procalcitonin Urine Color Urine Clarity Urine pH Ur Specific [place] Urine Protein Urine Ketones Urine Blood Urine Nitrite Urine Bilirubin Urine Urobilinogen Ur Leukocyte Esterase Urine Glucose COVID-19 Source Nasal/Nares SARS-CoV-2 (PCR) Negative 10/14/22 10/14/22 10/14/22 06:10 06:10 06:10 WBC 9.41 RBC 3.46 L Hgb 10.6 L Hct 30.4 L MCV 88 MCH 30.6 MCHC 34.9 D RDW 11.9 Plt Count 281 MPV 10.2 Immature Gran % 0.5 Neutrophils % 68.9 Lymphocytes % 18.9 Monocytes % 9.2 Eosinophils % 2.1 Basophils % 0.4 Nucleated RBC % 0.0 Absolute Neutrophils 6.47 Absolute Lymphocytes 1.78 Absolute Monocytes 0.87 H Absolute Eosinophils 0.20 Absolute Basophils 0.04 VBG Lactate Sodium Potassium Chloride Carbon Dioxide Anion Gap BUN Creatinine Est GFR (CKD-EPI 2020) Glucose Calcium Magnesium 2.0 Total Bilirubin AST ALT Alkaline Phosphatase Total Protein Albumin Lipase Procalcitonin < 0.1 Urine Color Urine Clarity Urine pH Ur Specific [place] Urine Protein Urine Ketones Urine Blood Urine Nitrite Urine Bilirubin Urine Urobilinogen Ur Leukocyte Esterase Urine Glucose COVID-19 Source SARS-CoV-2 (PCR)
--- NOTE | 2021-12-14 16:29 | W.ANESPOSTOP ---
Postoperative Evaluation Date, Time and Location Date Performed: 12/14/21 Time Performed: 16:29 Patient Location: Intensive Care Unit Vital Signs Most Recent Imported Vital Signs: Most Recent Vital Signs Temp Pulse Resp BP Pulse Ox 36.7 C 72 16 105/56 L 99 12/14/21 08:09 12/14/21 15:01 12/14/21 15:06 12/14/21 15:01 12/14/21 15:06 Pain Score Most Recent Pain Score: Most Recent Pain Score Pain Level 12/14/21 15:16 Assessment Mental Status: Awake (Alert & Oriented to Patient Baseline) Airway and Respiratory Function: Patent airway with normal (patient baseline) respiratory exam Cardiovascular Function: Hemodynamically Stable Hydration Status: Adequately Hydrated Nausea & Vomiting: No Nausea or Vomiting Pain: Pain is Moderate or Severe Postoperative Pain Management: Ongoing pain, patient will be managed as an inpatient Peripheral Nerve Block: Regional nerve block not resolved at time of post operative discharge Postoperative Comments:: Patient reports pain when moving, feels better when lying still. ICU addressing.
[2021-12-14] MEDS: LORazepam 2 MG/ML VIAL 0.5 MG IVP (20:12)
[2021-12-14] MEDS: Enoxaparin 40 MG/0.4 ML SYR SC (22:47)
[2021-12-15] VITALS (45 sets, daily range): BP systolic 94–122; BP diastolic 42–97; PULSE 65–83; RESP 7–22; TEMP 36.6–37.3; O2SAT 92–98
[2021-12-15] MEDS: ACETAMINOPHEN 1,000 MG/100 ML BTL 400 MG IVPB ×4 (00:10→23:29)
[2021-12-15] MEDS: Pantoprazole 40 MG VIAL IVP ×2 (00:12→23:29)
[2021-12-15] MEDS: PIPERACILLIN/TAZO 3.375 GM in Normal Saline 50 ML IVPB ×4 (00:12→17:38)
[2021-12-15] MEDS: LORazepam 2 MG/ML VIAL 0.5 MG IVP ×3 (01:13→19:27)
[2021-12-15 05:37] LABS: Abs Immature Grans 0.05 10^3/uL (0.0-0.06); Absolute Lymphocyte Count 0.88 10^3/uL (1.2-3.4); Absolute Monocyte Count 1.03 10^3/uL (0.1-0.8); Basophils % 0.2; HCT 27.7 % (36.0-46.0); HGB 8.9 g/dL (11.2-15.7); Immature Grans % 0.4; Lymphocytes % 6.7; MCH 28.8 pg (27.0-33.0); MCHC 32.1 % (32.0-36.0); MCV 90 fL (80-95); Monocytes % 7.8; Neutrophils % 84.9; Platelet Count 266 10^3/uL (130-400); RBC 3.09 10^6/uL (3.93-5.22); RDW 11.9 % (11.7-14.6); RDW-SD 38.8 fL
[2021-12-15 05:41] LABS: Absolute Basophil Count 0.03 10^3/uL (0.0-0.2); Absolute Neutrophil Count 11.21 10^3/uL (1.2-6.7)
[2021-12-15 05:55] LABS: Magnesium 1.9 mg/dL (1.8-2.4)
[2021-12-15 06:00] LABS: Iron 9 ug/dL (50-170); Total Iron Binding Capacity 157 ug/dL (250-450); Transferrin Sat 6 % (15-50)
[2021-12-15 06:11] LABS: Anion Gap 8.7 mmol/L (3-11); BUN 12 mg/dL (7-18); CO2 27.3 mmol/L (21.0-32.0); CREATININE 0.6 mg/dL (0.55-1.02); Calcium 8.7 mg/dL (8.5-10.1); Chloride 106 mmol/L (98-107); Estimated GFR 94.13 (mL/min/1.73m2); Ferritin 315 ng/mL (8-252); Glucose 107 mg/dL (74-106); Sodium 142 mmol/L (136-145)
[2021-12-15] MEDS: Lactated Ringers 1,000 ML 125 ML IV ×3 (06:21→21:39)
[2021-12-15 06:26] LABS: Folate 7.7 ng/mL (8.6-20.0); Vitamin B12 545 pg/mL (193-986)
[2021-12-15] MEDS: Sertraline 50 MG TAB 150 MG PO (10:26)
[2021-12-15] MEDS: IRON SUCROSE COMPLEX 200 MG in Normal Saline 100 ML 400 MG IVPB (10:27)
--- NOTE | 2021-12-15 11:19 | W.PM.PROGNOT ---
Date of Service Date of service: 12/15/21 Time of Service: 11:19 Assessment and Plan Assessment and plan (1) Perforated intestine, nontraumatic: Status: Acute Assessment and plan: The patient is doing well post-op. Her pain is well controlled. SAhe is having no nausea or vomiting. The pt is not having any chest pain or SOB, productive cough; no calf pain or swelling. The pt is making good urine lt pink. High dose MS WINDOWS SOFTWARE ENGINEER intiated. The case was discussed with nursing and patient?s family, and prognosis reviewed. All of the pt's home medications were addressed and adjusted accordingly for their oral intact status. I discussed with the patient and/or there family about the findings in surgery and the pt's progress. We reviewed expectations for progress in the hospital; what the pt could expect for recovery time and length of stay. We discussed the importance of walking and pulmonary toilet to avoid blood clots and pneumonia. Continue current plans for pulmonary toilet, GI and DVT prophylaxis. We shall continue the current plan for pain management as it is at an appropriate level, and working well for the pt. Appropriate measures will be taken for constipation prevention, and this was also reviewed with the pt. The wound care plan was reviewed with nursing as well. 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 NG tube with bilious discharge Pain is well controlled Exam Const General: cooperative and comfortable Orientation: alert and oriented x3 HENMT Head: normocephalic and atraumatic Resp Effort & Inspection: normal respiratory effort Auscultation: clear to auscultation bilaterally Cardio Rate: regular rate Rhythm: regular rhythm GI Inspection: other (VICKY is in place ith miniml dischrge) Other: TOM drain with serosanguinous discharge Objective Last Vital Signs Temp 99.1 F 12/15/21 04:00 Pulse 70 12/15/21 06:01 Resp 15 12/15/21 06:01 BP 98/50 L 12/15/21 06:01 Pulse Ox 94 10/15/22 09:52 Laboratory Results - last 24 hr 12/15/21 12/15/21 12/15/21 05:10 05:10 05:10 WBC 13.20 H RBC 3.09 L Hgb 8.9 L Hct 27.7 L MCV 90 MCH 28.8 MCHC 32.1 D RDW 11.9 Plt Count 266 MPV 10.0 Immature Gran % 0.4 Neutrophils % 84.9 Lymphocytes % 6.7 Monocytes % 7.8 Eosinophils % 0.0 Basophils % 0.2 Nucleated RBC % 0.0 Absolute Neutrophils 11.21 H Absolute Lymphocytes 0.88 L Absolute Monocytes 1.03 H Absolute Eosinophils 0.00 Absolute Basophils 0.03 Sodium 142 Potassium 4.0 Chloride 106 Carbon Dioxide 27.3 Anion Gap 8.7 BUN 12 Creatinine 0.6 Est GFR (CKD-EPI 2020) 94.13 Glucose 107 H Calcium 8.7 Magnesium 1.9 Iron TIBC Transferrin % Sat Ferritin 315 H Vitamin B12 Folate 12/15/21 12/15/21 05:10 05:10 WBC RBC Hgb Hct MCV MCH MCHC RDW Plt Count MPV Immature Gran % Neutrophils % Lymphocytes % Monocytes % Eosinophils % Basophils % Nucleated RBC % Absolute Neutrophils Absolute Lymphocytes Absolute Monocytes Absolute Eosinophils Absolute Basophils Sodium Potassium Chloride Carbon Dioxide Anion Gap BUN Creatinine Est GFR (CKD-EPI 2020) Glucose Calcium Magnesium Iron 9 L TIBC 157 L Transferrin % Sat 6 L Ferritin Vitamin B12 545 Folate 7.7 L
[2021-12-15] MEDS: Enoxaparin 40 MG/0.4 ML SYR SC (21:41)
[2021-12-15] MEDS: Normal Saline Flush 10 ML SYR IVP (23:24)
[2021-12-16] VITALS (8 sets, daily range): BP systolic 104–144; BP diastolic 61–87; PULSE 78–85; RESP 16–19; TEMP 36.3–37.3; O2SAT 90–95
[2021-12-16] MEDS: PIPERACILLIN/TAZO 3.375 GM in Normal Saline 50 ML IVPB ×4 (00:31→17:40)
[2021-12-16] MEDS: LORazepam 2 MG/ML VIAL 0.5 MG IVP ×2 (01:29→07:35)
[2021-12-16 07:26] LABS: Abs Immature Grans 0.08 10^3/uL (0.0-0.06); Absolute Basophil Count 0.03 10^3/uL (0.0-0.2); Absolute Eosinophil Count 0.19 10^3/uL (0.0-0.7); Absolute Lymphocyte Count 1.26 10^3/uL (1.2-3.4); Absolute Monocyte Count 0.67 10^3/uL (0.1-0.8); Basophils % 0.2; Eosinophils % 1.4; HCT 27.2 % (36.0-46.0); Immature Grans % 0.6; Lymphocytes % 9.5; MCH 29.2 pg (27.0-33.0); MCHC 33.1 % (32.0-36.0); MCV 88 fL (80-95); MPV 10.6 fL (8.0-11.0); Monocytes % 5.1; Neutrophils % 83.2; Platelet Count 262 10^3/uL (130-400); RBC 3.08 10^6/uL (3.93-5.22); RDW 12.1 % (11.7-14.6); RDW-SD 39.2 fL; WBC 13.22 10^3/uL (4.4-10.8)
[2021-12-16] MEDS: Sertraline 50 MG TAB 150 MG PO (07:34)
[2021-12-16] MEDS: ACETAMINOPHEN 1,000 MG/100 ML BTL 400 MG IVPB ×3 (07:34→23:35)
[2021-12-16 07:44] LABS: Anion Gap 5.1 mmol/L (3-11); BUN 17 mg/dL (7-18); CO2 28.9 mmol/L (21.0-32.0); CREATININE 0.6 mg/dL (0.55-1.02); Calcium 8.5 mg/dL (8.5-10.1); Chloride 108 mmol/L (98-107); Estimated GFR 94.13 (mL/min/1.73m2); Glucose 80 mg/dL (74-106); Magnesium 1.8 mg/dL (1.8-2.4); Potassium 3.8 mmol/L (3.5-5.1); Sodium 142 mmol/L (136-145)
--- NOTE | 2021-12-16 11:00 | W.PM.PROGNOT ---
Date of Service Date of service: 12/16/21 Time of Service: 11:00 Assessment and Plan Assessment and plan (1) S/P exploratory laparotomy: Status: Acute Assessment and plan: Postop day #2. She had a perforated tumor of the ileum in which was adhered to the bladder. She underwent terminal ileum and cecum resection with primary anastomosis and on diversion. We also resected the tumor from the bladder. -She needs to be up and walking. -Continue NG tube drainage -Decrease her IV fluid rate and stop Ativan. -Patient is taking very high doses of morphine but still complaining of pain. I discussed with her and her family how pain meds and narcotics can cause confusion. Also being in the hospital and having general anesthesia can cause issues with mentation. Encouraged her to be up and walking in the hallways. -We will consult PT. She does use a cane at home. -Vallejo catheter needs to stay in until 12/25. -I also discussed with the patient family that we do not want to give a lot of oral medications until her bowels are working. We will know this happens when she starts passing gas. do not anticipate this until Friday or Friday. And until then we will need to use IV medications. She is on day 3 of Zosyn. Continue supportive care. Labs were reviewed and electrolytes adjusted (2) Perforated intestine, nontraumatic: Status: Acute (3) Acute on chronic blood loss anemia: Status: Acute (4) Low folate: Status: Acute (5) Chronic narcotic use: Status: Acute (6) Bladder neoplasm of uncertain malignant potential: Status: Acute (7) Chronic prescription benzodiazepine use: Status: Acute (8) Chronic narcotic use: Status: Acute (9) Anxiety: Status: Chronic (10) Elevated lipids: Status: Acute Subjective Subjective Interval history since last seen: Pt c/o pain 10/10. She is lying comfortably in bed and is conversational. No headaches. No CP or SOB. no productive cough. no dysuria. She is bilateral swelling of her feet. No leg pain. She has had 100 cc out of her NG tube so far this shift. She says she is hungry. She is not passing gas Family notes that she seems more confused today since she was in the ICU. She is A&O x3 but slow to answer. Nursing thinks it is from the Ativan. She is on longstanding Xanax at home. She has not been out of bed walking. She is moving all extremities purposefully. Genevieve is still bloody. Exam Narrative Exam Narrative: PHYSICAL EXAM GENERAL APPEARANCE: Alert, healthy appearance, oriented, in no acute distress. She is a little slow to answer but does answer appropriately. SKIN: No rashes.? No breakdown HYDRATION: Well hydrated HEAD, EYES, EARS, NECK, THROAT: Head is normocephalic, pupils equal, round, reactive to light and accommodation, ocular movement intact, sclera clear and no jaundice. ?Dentition intact. No sore throat.? No jaw pain. No thrush NECK: Supple, Trachea midline. No JVD. LUNGS: normal respiration/nl chest excursion. ?Clear to auscultation B/l no R/R/W ?HEART: Regular rate and rhythm, EXTREMITY: No edema or cyanosis? no leg pain, redness, swelling in bilateral feet. no IV infiltration ABDOMEN: Necrosis clean dry and intact. She has minimal bowel sounds. NEURO: no focal neuro deficits. Objective Last Vital Signs Temp 37.3 C 12/16/21 07:25 Pulse 83 12/16/21 07:25 Resp 19 12/16/21 07:25 BP 144/87 H 12/16/21 07:25 Pulse Ox 94 12/16/21 07:25 Laboratory Results - last 24 hr 12/16/21 12/16/21 12/16/21 06:10 06:10 06:10 WBC 13.22 H RBC 3.08 L Hgb 9.0 L Hct 27.2 L MCV 88 MCH 29.2 MCHC 33.1 RDW 12.1 Plt Count 262 MPV 10.6 Immature Gran % 0.6 Neutrophils % 83.2 Lymphocytes % 9.5 Monocytes % 5.1 Eosinophils % 1.4 Basophils % 0.2 Nucleated RBC % 0.0 Absolute Neutrophils 11.00 H Absolute Lymphocytes 1.26 Absolute Monocytes 0.67 Absolute Eosinophils 0.19 Absolute Basophils 0.03 Sodium 142 Potassium 3.8 Chloride 108 H Carbon Dioxide 28.9 Anion Gap 5.1 BUN 17 Creatinine 0.6 Est GFR (CKD-EPI 2020) 94.13 Glucose 80 Calcium 8.5 Magnesium 1.8
[2021-12-16] MEDS: Normal Saline Flush 10 ML SYR IVP ×2 (17:41→23:36)
[2021-12-16] MEDS: Lactated Ringers 1,000 ML 100 ML IV (21:49)
[2021-12-16] MEDS: Enoxaparin 40 MG/0.4 ML SYR SC (21:49)
[2021-12-16] MEDS: Pantoprazole 40 MG VIAL IVP (23:35)
[2021-12-17] VITALS (8 sets, daily range): BP systolic 85–138; BP diastolic 55–81; PULSE 80–176; RESP 16–20; TEMP 36.3–36.9; O2SAT 92–96
[2021-12-17] MEDS: PIPERACILLIN/TAZO 3.375 GM in Normal Saline 50 ML IVPB ×4 (00:50→18:10)
--- NOTE | 2021-12-17 04:42 | W.PM.PROGNOT ---
Date of Service Date of service: 12/17/21 Time of Service: 04:42 Assessment and Plan Assessment and plan (1) Atrial fibrillation: Status: Chronic Assessment and plan: Started Cardizem We will try to review outpatient cardiology notes (2) Perforated intestine, nontraumatic: Status: Acute Assessment and plan: I removed the nasogastric tube today. We will start some sips of clears. I think we can probably stop the Zosyn sometime this week Subjective Subjective Interval history since last seen: She complained of some chest heaviness, without shortness of breath today. She denied abdominal pain. EKG was consistent with atrial fibrillation, and Cardizem was started with a favorable response. Exam Cardio Rate: tachycardic and other Rhythm: abnormal rhythm irregularly irregular GI Inspection: normal to inspection Palpation: soft, no hernias and nontender Percussion: normal to percussion Auscultation: normal bowel sounds Objective Last Vital Signs Temp 98.1 F 12/17/21 03:48 Pulse 89 12/17/21 03:48 Resp 18 12/17/21 03:48 BP 109/65 12/17/21 03:48 Pulse Ox 93 12/17/21 03:48 Laboratory Results - last 24 hr 12/16/21 12/16/21 12/16/21 06:10 06:10 06:10 WBC 13.22 H RBC 3.08 L Hgb 9.0 L Hct 27.2 L MCV 88 MCH 29.2 MCHC 33.1 RDW 12.1 Plt Count 262 MPV 10.6 Immature Gran % 0.6 Neutrophils % 83.2 Lymphocytes % 9.5 Monocytes % 5.1 Eosinophils % 1.4 Basophils % 0.2 Nucleated RBC % 0.0 Absolute Neutrophils 11.00 H Absolute Lymphocytes 1.26 Absolute Monocytes 0.67 Absolute Eosinophils 0.19 Absolute Basophils 0.03 Sodium 142 Potassium 3.8 Chloride 108 H Carbon Dioxide 28.9 Anion Gap 5.1 BUN 17 Creatinine 0.6 Est GFR (CKD-EPI 2020) 94.13 Glucose 80 Calcium 8.5 Magnesium 1.8
[2021-12-17 07:12] LABS: Abs Immature Grans 0.11 10^3/uL (0.0-0.06); Absolute Basophil Count 0.05 10^3/uL (0.0-0.2); Absolute Lymphocyte Count 1.43 10^3/uL (1.2-3.4); Basophils % 0.4; Eosinophils % 1.5; HCT 27.6 % (36.0-46.0); HGB 8.8 g/dL (11.2-15.7); Immature Grans % 0.8; Lymphocytes % 10.5; MCH 28.7 pg (27.0-33.0); MCHC 31.9 % (32.0-36.0); MCV 90 fL (80-95); MPV 10.3 fL (8.0-11.0); Monocytes % 3.7; Neutrophils % 83.1; Platelet Count 291 10^3/uL (130-400); RBC 3.07 10^6/uL (3.93-5.22); RDW 12.1 % (11.7-14.6); RDW-SD 38.9 fL
[2021-12-17 07:40] LABS: Anion Gap 10.3 mmol/L (3-11); BUN 11 mg/dL (7-18); CO2 25.7 mmol/L (21.0-32.0); CREATININE 0.6 mg/dL (0.55-1.02); Calcium 8.4 mg/dL (8.5-10.1); Chloride 105 mmol/L (98-107); Estimated GFR 94.13 (mL/min/1.73m2); Glucose 76 mg/dL (74-106); Magnesium 1.6 mg/dL (1.8-2.4); Potassium 3.4 mmol/L (3.5-5.1); Sodium 141 mmol/L (136-145)
[2021-12-17] MEDS: Sertraline 50 MG TAB 150 MG PO (08:00)
[2021-12-17] MEDS: ACETAMINOPHEN 1,000 MG/100 ML BTL 400 MG IVPB ×2 (08:01→15:44)
[2021-12-17] MEDS: Folic Acid 1 MG TAB PO (08:01)
[2021-12-17] MEDS: Lactated Ringers 1,000 ML 100 ML IV ×3 (08:04→23:10)
--- NOTE | 2021-12-17 08:24 | RT.EKG_ITS ---
APPROVED REPORT Exam: Resting ECG Reason for Exam: CP Patient Location: I HR:143 bpm ECG Measurements Heart Rate 143 AXIS CA [id number] P [id number] QRSd 89 QRS -22 QT 265 T 181 QTc 409 Conclusion Atrial fibrillation...? atrial activity Anterior infarct, old...Q >40mS, abnormal ST-T, V2-V5 Nondiagnostic ST-T abnormalities
[2021-12-17] MEDS: Lactated Ringers 500 ML IV (08:34)
[2021-12-17] MEDS: MAGNESIUM SULFATE 4 GM/100 ML BAG IVPB (09:20)
[2021-12-17] MEDS: Normal Saline Flush 10 ML SYR IVP ×3 (09:21→18:11)
[2021-12-17] MEDS: dilTIAZem 30 MG TAB PO (09:24)
--- NOTE | 2021-12-17 09:45 | PDOC.CMPRO ---
- If Service Date Differs Date of service: 12/17/21 Time of Service: 09:45 Care Management Progress Note S/O: Ofe continues to be closely monitored and treated, per MD: ambulation is being encouraged, PT consult initiated. IVF is being decreased and Ativan discontinued, remains on morphine still having break through pain. Per MD, mentation concerns are assumed to be related to anesthesia and narcotic effects. Vallejo catheter to remain until 12/25. CM will continue to follow and support discharge planning considerations. CM provided updated PCP information to [facility] for chart updates, and to gather fax number for DC summary upon discharge. CM continues to follow. A: 76 year old female admitted to [facility]21 for ruptured appendix P: Ofe will discharge to her sons home in [place] when medically ready, per MD. If [facility] supports anticipated, CM will need to outreach to providers to follow orders as Ofe's PCP is in [place]. Ofe plans to fly back to [place], when she is able to safely transport. CM will continue to follow.
[2021-12-17] MEDS: POTASSIUM CHLORIDE 10 MEQ/100 ML BAG 100 MEQ IVPB ×2 (10:25→11:33)
--- NOTE | 2021-12-17 12:47 | W.CARDCONSUL ---
Date of service: 12/17/21 Time of Service: 12:47 Assessment and Plan Assessment and plan (1) Atrial fibrillation: Status: Chronic Assessment and plan: I would recommend the patient be treated as any new atrial fibrillation. Goal would be to control rate less than 100. She should have an echocardiogram done. When her postoperative course permits, anticoagulation should be discussed and implemented. (2) S/P exploratory laparotomy: Status: Acute Assessment and plan: As above, ongoing postoperative care. Timing of anticoagulation should be cleared with surgery History of Present Illness History of Present Illness Chief Complaint: Atrial fibrillation Narrative: This is a 76-year-old woman who the hospital a few days ago with what initially was felt to be a perforated appendix. 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 Bowel was resected. She spent a few days in the intensive care unit and was then transferred to the regular floor. Today she was noted to have atrial fibrillation moderately rapid ventricular response. She was mildly symptomatic with chest heaviness. She has been given oral diltiazem with improvement in her heart rate. Reportedly she was not felt to require intravenous medication such as intravenous diltiazem as her blood pressures were relatively low. Some mention in the chart was made of Mobitz 1 and Mobitz 2 AV block but there are no rhythm strips available for review. Discussion with Dr. Magallon he continued with the impression that it was most likely Mobitz 1. 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 Chronic prescription benzodiazepine use (Acute) Chronic narcotic use (Acute) Anxiety (Chronic) Elevated lipids (Acute) Medical History Chronic back pain Fibromyalgia Hx of migraine headaches Surgical History History of bladder surgery Bladder lift History of hysterectomy Hx of cholecystectomy Social History Smoking/Tobacco Use Status: Never Smoking risk assessment performed?: Yes Alcohol Intake: never Drug use: Never Substance use type: does not use Do you feel safe at home: Yes Do you feel safe in your relationship?: Yes Exam Narrative Exam Narrative: Patient was not examined Results Last Vital Signs Temp 36.9 C 12/17/21 11:33 Pulse 103 H 12/17/21 11:33 Resp 18 12/17/21 11:33 BP 114/72 12/17/21 11:33 Pulse Ox 93 12/17/21 11:33 Labs Result diagrams: 12/17/21 06:22 12/17/21 06:22 Labs: Laboratory Results - last 24 hr 12/17/21 12/17/21 06:22 06:22 WBC 13.60 H RBC 3.07 L Hgb 8.8 L Hct 27.6 L MCV 90 MCH 28.7 MCHC 31.9 L RDW 12.1 Plt Count 291 MPV 10.3 Immature Gran % 0.8 Neutrophils % 83.1 Lymphocytes % 10.5 Monocytes % 3.7 Eosinophils % 1.5 Basophils % 0.4 Nucleated RBC % 0.0 Absolute Neutrophils 11.30 H Absolute Lymphocytes 1.43 Absolute Monocytes 0.50 Absolute Eosinophils 0.20 Absolute Basophils 0.05 Sodium 141 Potassium 3.4 L Chloride 105 Carbon Dioxide 25.7 Anion Gap 10.3 BUN 11 Creatinine 0.6 Est GFR (CKD-EPI 2020) 94.13 Glucose 76 Calcium 8.4 L Magnesium 1.6 L
--- NOTE | 2021-12-17 14:48 | W.NUTCONSULT ---
Date of service: 12/17/21 Time of Service: 14:48 Nutritional Consult ASSESSMENT: Ofe has been NPO for 5 days secondary to complications associated with perforated appendix (12/13/21) and ex lap. Visiting from [place]- appears well nourished, BMI wnl. PMH: chronic fibromyalgia and chronic narcotic use. At high nutritional risk in view of extended NPO status in petite elderly person. Estimated Needs: [id number] kcal, 75-90 g protein NUTRITIONAL DIAGNOSIS: Inadqeuate nutrient intake secondary to prolonged NPO status INTERVENTION: Consider TPN if unable to advance diet in next 24 hours would recommend Clinimix 4.25/10 2000 ml run at 83cc/hour, 20% lipids 250 ml run at 30cc/hour- provides total of 1520 kcal, 84 g protein, 55 g fat MONITORING AND EVALUATION: electrolytes, labs, weight, nutrient intake/administration Time Spent in Nutritional Counseling and Treatment: 0
--- NOTE | 2021-12-17 16:17 | IN_ITS ---
PT Notes Visit Reasons: Ruptured Appendix Physical Therapy Inpatient Initial Evaluation Date: 12/17/2021 Referring Doctor: Melanie Farah MD PT Orders: PT CONSULT: Okay to clamp NGT to walk Precautions: Fall. Standard. Activity as tolerated. Patient Profile/Admitting Diagnosis: Ofe is a 76-year-old female with perforated tumor of ileum and is status post exploratory laparotomy with ileum/cecum resection with primary anastomosis and diversion on postoperative day 3. Patient is also with admitting diagnoses of acute on chronic blood loss anemia, low folate, chronic narcotic use, bladder neoplasm of uncertain malignant potential, chronic prescription of benzodiazepine, anxiety, and elevated lipase PMHX: All Active Problems?(Updated 12/13/21 @ 22:33 by Melanie Farah DO) Chronic prescription benzodiazepine use (Acute) Chronic narcotic use (Acute) Anxiety (Chronic) Elevated lipids (Acute) Acute perforated appendicitis (Acute) Medical History?(Updated 12/13/21 @ 22:33 by Melanie Farah DO) Chronic back pain Fibromyalgia Surgical History?(Updated 12/13/21 @ 18:41 by Nery Delacruz DO) History of bladder surgery Bladder liftHistory of hysterectomy Hx of cholecystectomy Social History/Home Situation: Originally from [place], here only originally for a week of vacation. Patient upon discharge will be in the rented house in [place], [place] to recover which the son now rented for the next 5 weeks. Patient will be with daughter while recuperating. Independent with all mobility ADLs using a single point cane indoors and outdoors. In her home in [place], she has 4 [facility] with rails on B sides. Equipment Owned/DME: SPC Subjective: Agreeable to trying out short distance walking. States that she has had 2 falls in the past year which have resulted from her chronic neuropathy. She reports 5-6/10 pain in her surgical area and 2-3/10 pain in B legs with walking which somehat subsided with rest. Objective: General Observation: Supine in bed. Surgical drain in place. Vallejo catheter in place. HAND SAMPLE MAKER pump on. Telemonitor in place. Mental Status: Alert and oriented as to person, place, time, and purpose. Able to pay attention, focus, and respond appropriately. Pain: 5-6/10 with walking over surgical incision; 2-3/10 in B legs Vital Signs: WNL as closeley monitored via tele ROM: Right Upper Extremity: Shoulder Flexion WFL. Shoulder abduction WFL. Elbow fl exion WFL. Wrist flexion WFL. Functional opening and closing of hand WFL. Left Upper Extremity: Shoulder Flexion WFL. Shoulder abduction WFL. Elbow flexion WFL. Wrist flexion WFL. Functional opening and closing of hand WFL. Right Lower Extremity: Hip flexion lacks the last 25% of AROM due to pain report. Hip abduction WFL. Knee flexion WFL. Ankle dorsiflexion WFL. Ankle plantarflexion WFL. Left Lower Extremity: Hip flexion lacks the last 25% of AROM due to pain report. Hip abduction WFL. Knee flexion WFL. Ankle dorsiflexion WFL. Ankle plantarflexion WFL. Strength: Right Upper Extremity: Shoulder flexors 4/5. Shoulder abductors 4/5. Elbow flexors 4/5. Elbow extensors 4/5. Rockboard Lather strong. Left Upper Extremity: Shoulder flexors 4/5. Shoulder abductors 4/5. Elbow flexors 4/5. Elbow extensors 4/5. Rockboard Lather strong. Right Lower Extremity: Hip flexors 3-/5. Hip abductors 4-/5. Knee flexors 4-/5. Knee extensors 4-/5. Ankle dorsiflexors 4-/5. Ankle plantarflexors 4-/5. Left Lower Extremity: Hip flexors 3-/5. Hip abductors 4-/5. Knee flexors 4-/5. Knee extensors 4-/5. Ankle dorsiflexors 4-/5. Ankle plantarflexors 4-/5. Bed Mobility/Transfers: Supine to sit with standy by assist Sit to supine with minimla ssist to B LE to decrease pain report over surgical incision Sit to stand with contact guard assist Stand to sit with contact guard assist Bed to reclining chair with contact guard assist Reclining chair to bed with contact guard assist Gait: Instructed patient with level surface ambulation of 20 feet requiring contcact guard assist. Delaney decreased. Step height decreased. Step length decreased. Balance: Static Sitting: Normal Dynamic Sitting: Normal Static Standing: Fair Dynamic Standing: Fair Special Tests: Mobility Limitations Standardized Measure [facility] 6 clicks Basic Mobility Inpatient Short Form: Raw Score: 18 CMS Score: 47% deficit Informed Consent/Education: Patient was instructed in purpose of PT consult and plan of care. Agreeable to proceed with established PT POC to achieve personal goals. Assessment: Patient presents with clinical signs and symptoms consistent with current/admitting diagnoses that have resulted to mobility limitations, gait instability, generalized weakness, and overall ADL decline as demonstrated by the following impairment level findings: 1. Decreased strength to B hip major muscle groups 2. Impaired sitting/standing balance 3. Impaired activity tolerance 4. Limitation of joint range of motion in B hips due to discomfort 5. Shortness of breath 6. Chronic peripheral neuropathy in B legs Impairments are contributing to the following functional limitations: 1. Decline in bed mobility skills 2. Decline in transfer skills 3. Difficulty with ambulation without assistive device and physical assistance 4. Increased completion time for mobility ADL performance 5. Increased risk for falls 6. Difficulty with managing steps alone safely Patient is assessed as a 56116 moderate complexity based on the following: History: 76-year-old female with past medical history as indicated above Examination: Demonstrable impairment in strength, balance, and mobility level with underlying impairments and functional limitations as exhibited above as well as deficit score of 47% utilizing the [facility] Mobility Inpatient Short Form Presentation: Evolving Decision Makin moderate complexity Goals: Goals X1 week 1. Supine-Sit independent 2. Sit-Supine independent 3. Sit-Stand independent 4. Stand-Sit independent with SPC 5. Bed-Chair independent with SPC 6. Chair-Bed independent with SPC 7. Independent gait on level surface with use of SPC for at least 300 feet without report of pain nor dyspnea 8. Independent stair negotiation while holding onto B rails for at least 15 steps without report of pain nor dyspnea 9. Independent with home exercise program 10. Good static and dynamic standing balance/tolerance Plan of Care/Treatment Plan: 1-2x/day, 7 days/week x 1 week. Plan of care has been reviewed with the PHARMACY PICKING TECHNICIAN providing the service under Physical Therapy direction. Initiate Physical Therapy intervention for pain management as needed, strengthening, bed mobility, transfers, gait, stairs, balance training, and use of assistive device. DISCHARGE RECOMMENDATIONS: [] Home with no services [] [X] Home with services. Patient will benefit from home health PT services in order to progress mobility level using least restrictive assistive ambulatory device, assess home safety, identify additional equipment needs, and establish a functional maintenance program that will increase ability of patient to remain at home. Will assess need for FWW vs. SPC. [] Home with outpatient PT [] [] SNF for continued rehabilitation [] [] Patient Care Representative Care [] [] SNF versus LTC based on ability to participate and progress [] TREATMENT CODE/TIME: 50144 x 20 minutes, 67490 x 13 minutes beginning at 16:17 PM. Thank you for the opportunity to participate in the care of this patient. Nanci Roldan PT, DPT, CLT [facility] [place], [place]
--- NOTE | 2021-12-17 19:34 | W.PM.PROGNOT ---
Date of Service Date of service: 12/17/21 Time of Service: 19:35 Assessment and Plan Assessment and plan (1) Atrial fibrillation: Status: Chronic Assessment and plan: New onset. D/T SBP of 80-85, oral diltiazem 30mg given po rather than IV diltiazem or metoprolol. HR responded well to this dose. Converted back to NSR with rate of 79. Will not continue diltiazem at this point in time. She has had periods of Second degree Type 2 block. Telemetry. Subjective Subjective Patient reports: shortness of breath and afebrile; denies nausea or vomiting Interval history since last seen: Pt developed central chest pressure this AM; noted to be in atrial fibrillation with RVR. Exam Narrative Exam Narrative: Sitting in bed; appears anxious but pleasant. Const General: cooperative Nutritional Appearance: average body habitus Orientation: alert and oriented x3 Resp Effort & Inspection: normal respiratory effort Auscultation: clear to auscultation bilaterally Cardio Rate: tachycardic Rhythm: abnormal rhythm irregularly irregular GI Palpation: soft and nontender Auscultation: normal bowel sounds Extrem General: no calf tenderness and edema Laterality: bilateral (Nonpitting.) Objective Last Vital Signs Temp 36.8 C 12/17/21 15:26 Pulse 140 H 12/17/21 15:26 Resp 16 12/17/21 15:26 BP 114/78 12/17/21 15:26 Pulse Ox 93 12/17/21 15:26 Laboratory Results - last 24 hr 12/17/21 12/17/21 06:22 06:22 WBC 13.60 H RBC 3.07 L Hgb 8.8 L Hct 27.6 L MCV 90 MCH 28.7 MCHC 31.9 L RDW 12.1 Plt Count 291 MPV 10.3 Immature Gran % 0.8 Neutrophils % 83.1 Lymphocytes % 10.5 Monocytes % 3.7 Eosinophils % 1.5 Basophils % 0.4 Nucleated RBC % 0.0 Absolute Neutrophils 11.30 H Absolute Lymphocytes 1.43 Absolute Monocytes 0.50 Absolute Eosinophils 0.20 Absolute Basophils 0.05 Sodium 141 Potassium 3.4 L Chloride 105 Carbon Dioxide 25.7 Anion Gap 10.3 BUN 11 Creatinine 0.6 Est GFR (CKD-EPI 2020) 94.13 Glucose 76 Calcium 8.4 L Magnesium 1.6 L
[2021-12-17] MEDS: Enoxaparin 40 MG/0.4 ML SYR SC (21:06)
[2021-12-18] VITALS (10 sets, daily range): BP systolic 120–154; BP diastolic 67–87; PULSE 69–80; RESP 16–19; TEMP 36.2–37.7; O2SAT 93–98
[2021-12-18] MEDS: ACETAMINOPHEN 1,000 MG/100 ML BTL 400 MG IVPB ×3 (00:08→15:44)
[2021-12-18] MEDS: Pantoprazole 40 MG VIAL IVP (00:08)
[2021-12-18] MEDS: Normal Saline Flush 10 ML SYR IVP ×4 (00:09→21:02)
[2021-12-18] MEDS: PIPERACILLIN/TAZO 3.375 GM in Normal Saline 50 ML IVPB ×4 (00:09→17:57)
[2021-12-18 07:03] LABS: HCT 24.7 % (36.0-46.0); HGB 8.5 g/dL (11.2-15.7); MCH 29.8 pg (27.0-33.0); MCHC 34.4 % (32.0-36.0); MCV 87 fL (80-95); MPV 9.8 fL (8.0-11.0); Platelet Count 297 10^3/uL (130-400); RBC 2.85 10^6/uL (3.93-5.22); RDW-SD 38.5 fL; WBC 9.32 10^3/uL (4.4-10.8)
[2021-12-18 07:15] LABS: BUN 8 mg/dL (7-18); CREATININE 0.5 mg/dL (0.55-1.02); Chloride 106 mmol/L (98-107); Estimated GFR 98.36 (mL/min/1.73m2); Glucose 97 mg/dL (74-106); Magnesium 1.9 mg/dL (1.8-2.4); Potassium 3.5 mmol/L (3.5-5.1); Sodium 140 mmol/L (136-145)
[2021-12-18] MEDS: Folic Acid 1 MG TAB PO (07:52)
[2021-12-18] MEDS: Sertraline 50 MG TAB 150 MG PO (07:52)
[2021-12-18] MEDS: Ondansetron 4 MG/2 ML VIAL IVP (08:15)
[2021-12-18] MEDS: Lactated Ringers 1,000 ML 75 ML IV (09:52)
--- NOTE | 2021-12-18 10:37 | PGE_ITS ---
Date of Service Date of service: 12/18/21 Time of Service: 10:38 Assessment and Plan Assessment and plan (1) S/P exploratory laparotomy: Status: Acute Assessment and plan: POD#4 she is not passing gas or had a bowel movement. She has not been out of bed for 36 hours She has to be up and walking in the [place] for 5 times a day. Continue I-S. She is on Protonix. Hemoglobin 8.5. Venna for today. Repeat hemoglobin in a.m. We will type and cross for tomorrow in case she needs transfusion She is on Lovenox She is on Entereg Pain plan: Ofirm 1000 mg 3 times daily/MS LICENSED INSURANCE SALES AGENT Today 08/07 Zosyn. No fever no white count. Will discontinue Zosyn on Friday. Pathology is still pending (2) Atrial fibrillation: Status: Chronic Assessment and plan: Patient currently in normal sinus. Her blood pressure did not tolerate being on diltiazem I did order an echo to follow-up Cardiology does recommend anti-coagulation, think this far out from surgery she is stable to anticoagulate. Her hemoglobin preop was only 10.7. I am going to give her some iron today as her iron levels are pretty low. We will follow her hemoglobin and she may need to be transfused And second-degree heart block-paroxysmal -A. fib has been paroxysmal as well. Will continue on telemetry. (3) Chronic narcotic use: Status: Acute Assessment and plan: We have had issues with pain control. She is on chronic narcotics and benzodiazepines (4) Low folate: Status: Acute (5) Acute on chronic blood loss anemia: Status: Acute Assessment and plan: Ferritin today. See above (6) Bladder neoplasm of uncertain malignant potential: Status: Acute (7) Perforated intestine, nontraumatic: Status: Acute (8) Chronic prescription benzodiazepine use: Status: Acute (9) Chronic narcotic use: Status: Acute (10) Anxiety: Status: Chronic (11) Elevated lipids: Status: Acute Subjective Subjective Interval history since last seen: Pt is doing well. no headaches. No CP or SOB. no productive cough. no dysuria. no leg pain. She complains of swelling in her feet. She has not been out of bed walking for the last 36 hours. She has not moved her bowels or passed flatus. She is hungry and wants to eat. Exam Narrative Exam Narrative: Minimal bowel sounds. 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 This should be changed today. PHYSICAL EXAM GENERAL APPEARANCE: Alert, healthy appearance, oriented, in no acute distress SKIN: No rashes.? No breakdown HYDRATION: Well hydrated HEAD, EYES, EARS, NECK, THROAT: Head is normocephalic, pupils equal, round, reactive to light and accommodation, ocular movement intact, sclera clear and no jaundice. ?Dentition intact. No sore throat.? No jaw pain. No thrush NECK: Supple, Trachea midline. No JVD. LUNGS: normal respiration/nl chest excursion. ?Clear to auscultation B/l no R/R/W ?HEART: Regular rate and rhythm, EXTREMITY: No edema or cyanosis? no leg pain, redness. She does have some mild swelling in her feet. This has been present since Friday. NEURO: no focal neuro deficits. Objective Last Vital Signs Temp 37.3 C 12/18/21 07:17 Pulse 71 12/18/21 07:17 Resp 18 12/18/21 07:17 BP 143/78 H 12/18/21 07:17 Pulse Ox 94 12/18/21 07:17 Laboratory Results - last 24 hr 12/18/21 12/18/21 06:38 06:38 WBC 9.32 RBC 2.85 L Hgb 8.5 L Hct 24.7 L MCV 87 MCH 29.8 MCHC 34.4 D RDW 12.0 Plt Count 297 MPV 9.8 Sodium 140 Potassium 3.5 Chloride 106 Carbon Dioxide 24.0 Anion Gap 10.0 BUN 8 Creatinine 0.5 L Est GFR (CKD-EPI 2020) 98.36 Glucose 97 Calcium 8.0 L Magnesium 1.9
[2021-12-18] MEDS: IRON SUCROSE COMPLEX 200 MG in Normal Saline 100 ML 400 MG IVPB (12:05)
--- NOTE | 2021-12-18 14:06 | DI.US_ITS ---
APPROVED REPORT EXAM: Comprehensive 2D, Doppler, and color-flow Echocardiogram Patient Location: In-Patient Room/Bed: 205 Dials Supervisor: Radha Caldwell RDCS (AE) Indications: A Fib in the face of spesis Other Information Study Quality: Adequate Conclusion Normal left ventricular wall thickness and chamber size. Estimated ejection fraction is 59%. Wall m otion is normal Normal right ventricular size and systolic function The left atrium is borderline dilated. Right atrial size is normal Trileaflet aortic valve with trace regurgitation Normal mitral valve with mild regurgitation Normal tricuspid valve with mild regurgitation. Estimated right ventricular systolic pressure is 30 mmHg Mildly dilated ascending aorta measuring 3.65 cm Wall motion Left Ventricle The left ventricle is normal size. The left ventricular systolic function is normal. The left ventric ular ejection fraction is within the normal range. There is normal left ventricular wall thickness. T here is normal LV segmental wall motion. There is no ventricular septal defect visualized. LVEF is 59 %. Right Ventricle The right ventricle is normal size. The right ventricular systolic function is normal. The RVSP is 30 .4mmHg. Atria Left atrium is borderline dilated. The right atrium size is normal. The interatrial septum is intact with no evidence for an atrial septal defect. Aortic Valve The aortic valve is normal in structure. Aortic valve is trileaflet. There is no aortic valvular sten osis. Trace aortic regurgitation. Mitral Valve The mitral valve is normal in structure. No evidence of mitral valve stenosis. Mild mitral regurgitat ion. Tricuspid Valve The tricuspid valve is normal in structure. There is no tricuspid valve stenosis. Mild tricuspid regu rgitation. Pulmonic Valve The pulmonary valve is normal in structure. There is no pulmonic valvular stenosis. There is no pulmo beto valvular regurgitation. Great Vessels The aortic root is normal in size. The ascending aorta is mildly dilated. Aortic arch is not well vis ualized. IVC is normal in size and collapses >50% with inspiration. Pericardium There is no pericardial effusion. 2D Dimensions IVSD d PLAX 0.77 cm F: 0.6-1.0 LV Vol A2C d MOD 61.7 mL LVPW d PLAX 0.82 cm F: 0.6 - 1.0 LV Vol A4C d MOD 86.9 mL LVID d PLAX 4.93 cm F: 3.8 - 5.2 LA vol/ BSA A2C s A-L 37.4 mL/m2 LVDs 3.25 cm F: 2.2 - 3.5 LA vol/ BSA A4C s A-L 29.8 mL/m2 Ao Root d 3.37 cm F: 2.7 - 3.3 LA Vol/ BSA Biplane s A-L 33.7 mL/m2 RA Area A4C 14.10 cm2 LA Area A4C s MOD 19.26 cm2 RA Vol/ BSA A4C s A-L 17.9 mL/m2 LA Area A2C s MOD 21.74 cm2 Ao Asc Diam d 3.65 cm F: 2.3 - 3.1 LV EF A4C MOD 58.9 % LV EF Teichholz 62.4 % LV EF A2C MOD 59.3 % LVEF (Caro's) 57.39 % F: 54 - 74 LV EF Biplane MOD 57.4 % LV Volume 56.06 mL F: 46 - 106 SV 42.34 mL LV Volume Index 29.19 mL/m2 F: 29 - 61 SV Index 22.01 mL/m2 LV Vol Biplane MOD 73.8 mL FS 33.75 % M-Mode TAPSE 2.11 cm (M/F) >1.7 LV Diastology MV E' medial 0.084 (>0.07 m/s) E/A Ratio 0.8 LV E/e MED 10.30 (<14) MV E Vmax 0.87 (0.4-1.3 m/s) MV E' lateral 0.114 (>0.1 m/s) MV A Vmax 1.15 (0.4-1.3 m/s) LV E/e LAT 7.65 (<14) MV E/A Ratio 0.75 MV E/E' medial 10.32 MV E/E' lateral 7.65 Aortic Valve LVOT Area 3.67 cm2 AoV Area Vmax 2.86 cm2 LVOT Vmax 1.15 m/s AoV Area/ BSA (Vmax) 1.49 cm2/m2 LVOT Mean Suhail. 0.77 m/s LUCAS Mean Suhail. 2.75 cm2 LVOT Peak Grad 5.3 mmHg LUCAS Mean Suhail. Index 1.43 cm2/m2 LVOT Mean Grad 2.8 mmHg AR DT 2490 msec LVOT VTI 0.283 m AR PHT 722 msec LVOT Diam s 2.15 cm AoV Vmax 1.48 m/s Velocity Ratio 0.77 AoV Mean Suhail. 1.03 m/s AoV Peak Grad 8.8 mmHg LVOT SV 103.79 mL AoV Mean Grad 4.8 mmHg AoV VTI 0.335 m AoV Area VTI 3.10 cm2 AoV Area/ BSA (VTI) 1.61 cm/m2 Mitral Valve MV DT 134 (160-240 msec) MV PHT 39 msec MV Area PHT 5.66 cm2 MV VTI 0.411 m MV Area VTI 2.52 (4.0-6.0 cm2) Pulmonary Valve PV Vmax 0.98 (0.5-1.5 m/s) RVOT Peak Gr. 1.89 mmHg PV Peak Grad 3.8 mmHg RVOT Mean Gr. 0.85 mmHg PV Mean Grad 1.7 mmHg RVOT VTI 0.143 m PV VTI 0.203 m RVOT Vmax 0.69 m/s Tricuspid Valve TR Peak Grad 27.3 mmHg TR Vmax 2.62 m/s RA Pressure 3.00 mmHg RVSP (TR) 30.4 mmHg
--- NOTE | 2021-12-18 14:49 | PT.INNT ---
Date of service: 12/18/21 Time of Service: 14:50 PT Notes Visit Reasons: Ruptured Appendix 12/18/2021 Patient was not available to participate in PT interventions this morning, then refused to participate in PT this afternoon due to not feeling well. She reports that nursing is aware of her upset stomach, and she feels it would be better if she was allowed to eat a piece of toast or have some crackers and milk. She reports that her family works in the medical field and that they have set everything up for her to return safely to the [facility] and that they will help her. Will attempt to resume PT services tomorrow morning.
--- NOTE | 2021-12-18 15:53 | CMPROGNOTE_ITS ---
- If Service Date Differs Date of service: 12/18/21 Time of Service: 15:53 Care Management Progress Note S/O: Ofe continues to be closely monitored and treated, per MD: ambulation is being encouraged, and Ofe walked the loop twice today. However she declined PT services this afternoon; awaiting further evaluation to inform discharge planning considerations. CM will continue to follow. A: 76 year old female admitted to [facility] 12/13/21 for ruptured appendix P: Ofe will discharge to her sons home in [place] when medically ready, per MD. If [facility] supports anticipated, CM will need to outreach to providers to follow orders as Ofe's PCP is in [place]. Ofe plans to fly back to [place], when she is able to safely transport. CM will continue to follow.
--- NOTE | 2021-12-18 16:56 | CHAPLAIN ---
Ofe was resting in bed when I visited. She is visiting, with her two daughters and they have flown in to visit her son and his kids in [place]. One daughter returned today. Ofe said her six years ago, and within a year, one of her sons in law also . She moved in with her daughter, close to her other daughter. She believes things happen for a reason and that God has continued to take care of her.
[2021-12-18] MEDS: Mylanta Suspension 30 ML CUP PO (17:59)
[2021-12-18] MEDS: Enoxaparin 40 MG/0.4 ML SYR SC (21:39)
[2021-12-19] VITALS (9 sets, daily range): BP systolic 122–163; BP diastolic 61–85; PULSE 72–82; RESP 12–19; TEMP 36.5–37.6; O2SAT 94–96
[2021-12-19] MEDS: Lactated Ringers 1,000 ML 75 ML IV (00:08)
[2021-12-19] MEDS: Normal Saline 500 ML 30 ML IV (00:11)
[2021-12-19] MEDS: Normal Saline Flush 10 ML SYR IVP ×4 (00:11→23:33)
[2021-12-19] MEDS: Pantoprazole 40 MG VIAL IVP ×2 (00:11→23:33)
[2021-12-19] MEDS: PIPERACILLIN/TAZO 3.375 GM in Normal Saline 50 ML IVPB ×2 (00:13→06:36)
[2021-12-19] MEDS: ACETAMINOPHEN 1,000 MG/100 ML BTL 400 MG IVPB ×2 (00:13→08:21)
[2021-12-19 07:09] LABS: HCT 24.9 % (36.0-46.0); HGB 8.2 g/dL (11.2-15.7); MCH 28.8 pg (27.0-33.0); MCHC 32.9 % (32.0-36.0); MCV 87 fL (80-95); MPV 9.9 fL (8.0-11.0); Platelet Count 313 10^3/uL (130-400); RBC 2.85 10^6/uL (3.93-5.22); RDW 11.9 % (11.7-14.6); RDW-SD 38.5 fL; WBC 8.57 10^3/uL (4.4-10.8)
[2021-12-19 07:26] LABS: Anion Gap 5.1 mmol/L (3-11); BUN 4 mg/dL (7-18); CO2 29.9 mmol/L (21.0-32.0); CREATININE 0.6 mg/dL (0.55-1.02); Calcium 7.9 mg/dL (8.5-10.1); Chloride 108 mmol/L (98-107); Estimated GFR 94.13 (mL/min/1.73m2); Glucose 101 mg/dL (74-106); Magnesium 1.8 mg/dL (1.8-2.4); Potassium 3.3 mmol/L (3.5-5.1); Sodium 143 mmol/L (136-145)
[2021-12-19] MEDS: Folic Acid 1 MG TAB PO (08:21)
[2021-12-19] MEDS: Sertraline 50 MG TAB 150 MG PO (08:21)
--- NOTE | 2021-12-19 10:12 | PGE_ITS ---
Date of Service Date of service: 12/19/21 Time of Service: 10:12 Assessment and Plan Assessment and plan (1) S/P exploratory laparotomy: Status: Acute Assessment and plan: POD#5 she is passing gas. She has been up and walking today. She is taking a shower Continue I-S. She is on Protonix. Hemoglobin 8.5. Venna for today. Repeat hemoglobin in a.m. We will type and cross for tomorrow in case she needs transfusion She is on Lovenox She is on Entereg Pain plan: Start po tylenol and po hydrocodon. D/C MATERIAL CHASER D/C Zosyn today. No fever no white count. Pathology is still pending Cx- mixed teresita (2) Atrial fibrillation: Status: Chronic Assessment and plan: Patient currently in normal sinus. Her blood pressure did not tolerate being on diltiazem ECHO: Conclusion Normal left ventricular wall thickness and chamber size.? Estimated ejection fraction is 59%.? Wall motion is normal Normal right ventricular size and systolic function The left atrium is borderline dilated.? Right atrial size is normal Trileaflet aortic valve with trace regurgitation Normal mitral valve with mild regurgitation Normal tricuspid valve with mild regurgitation.? Estimated right ventricular systolic pressure is 30 mmHg Mildly dilated ascending aorta measuring 3.65 cm Cardiology does recommend anti-coagulation, think this far out from surgery she is stable to anticoagulate. Her hemoglobin preop was only 10.7. I am going to give her some iron today as her iron levels are pretty low. We will follow her hemoglobin and she may need to be transfused. Will leave anticoagulation up to her own PCP as she is in sinus rythm right now And second-degree heart block-paroxysmal -A. fib has been paroxysmal as well. Stop telemetry (3) Chronic narcotic use: Status: Acute Assessment and plan: Restart home pain meds (4) Low folate: Status: Acute (5) Acute on chronic blood loss anemia: Status: Acute Assessment and plan: Ferritin today. 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 She is hungry. She is passing flatus. Feels like she needs to have a BM. No N/V Complains of swelling in her lower extremities. She has been up and walking x2 today. Exam [facility] Head: normocephalic and atraumatic Resp Effort & Inspection: normal respiratory effort Auscultation: clear to auscultation bilaterally Cardio Rate: regular rate Rhythm: regular rhythm GI Inspection: incision (c/d/i) Palpation: soft, no hepatosplenomegaly and tender (appropriately tender to palpation) Auscultation: normoactive bowel sounds Objective Last Vital Signs Temp 97.7 F 12/19/21 07:48 Pulse 72 12/19/21 07:48 Resp 16 12/19/21 07:48 BP 122/61 12/19/21 07:48 Pulse Ox 94 12/19/21 07:48 Laboratory Results - last 24 hr 12/19/21 12/19/21 12/19/21 06:50 06:50 06:50 WBC 8.57 RBC 2.85 L Hgb 8.2 L Hct 24.9 L MCV 87 MCH 28.8 MCHC 32.9 RDW 11.9 Plt Count 313 MPV 9.9 Sodium 143 Potassium 3.3 L Chloride 108 H Carbon Dioxide 29.9 Anion Gap 5.1 BUN 4 L Creatinine 0.6 Est GFR (CKD-EPI 2020) 94.13 Glucose 101 Calcium 7.9 L Magnesium 1.8 Patient ABO/Rh A Positive Antibody Screen NEGATIVE
--- NOTE | 2021-12-19 11:37 | PDOC.CMDIS ---
- If Service Date Differs Date of service: 12/19/21 Time of Service: 11:37 LACE Index Scoring Tool - Questions: Length of Stay (in days): 4 - 6 Acuity (Admit via E.D.?): Yes E.D. Visits: 1 - Answers: Total Score: 8 Risk of Readmission: Low Risk Care Management Discharge Reason for Hospitalization: Acute perforated appendicitis Discharge Plan: Ofe will discharge to a [facility] at [facility] with her daughter, Celena. She will have new RN/PT home health orders through [facility], followed by Dr. Farah until Ofe returns to [place] in 4-6 weeks. DC Summary faxed to PCP in [place]. Discharge plan reviewed with Ofe and her three children, Geo, Celena and Tavia (returning to [place] today), new SAPPHIREA completed as well. Ofe shared appreciation for her care and stated she was very content with her stay at [facility]. Patient/Family Education Needs: Review discharge instructions, discuss Ask Me Three.
[2021-12-19] MEDS: HYDROcodone 10/Acetaminophen 325 TAB PO ×2 (13:48→19:24)
--- NOTE | 2021-12-19 14:50 | PT.INTREAT ---
Date of service: 12/19/21 Time of Service: 13:20 PT Notes Visit Reasons: Ruptured Appendix Inpatient Physical Therapy Treatment Note [facility] Date: 12/19/2021 PRECAUTIONS: Activity as tolerated SUBJECTIVE: Ofe agrees to participate in PT, although hesitantly. She indicates that she was able to have food at lunch and seems happy about that. During the session, patient becomes frustrated and defensive when asked questions regarding functional mobility. She asks is this an interrogation or a walk? She is hesitant to offer answers to questions regarding home set-up, current vs baseline level of function, and even states at one point I think I'd like to finish this walk by myself. At the end of the session she asks could you tell Alejandro I'm ready for my 1:30 Vicodin? OBJECTIVE: PAIN: No c/o pain BED MOBILITY/TRANSFERS Sit-stand: I Stand-sit: I GAIT Assistive Device: FWW Weight bearing: Full Assist: I Distance: 600' Deviation: Attempted to offer cueing for FWW management, attempted to encourage patient to attempt gait training without AD, cueing for posture, adjusted FWW to more appropriate height ASSESSMENT: Patient tolerates 600' with FWW support, demonstrating independence, and appears as though she could tolerate ambulating without an assistive device, or with less restrictive assistive device, however, refuses to ambulate without FWW support. PLAN: Continue to encourage gait training with least restrictive device, for improved activity tolerance and continued progression toward baseline level of function. TREATMENT CODE/TIME: Session 1: Refused Session 2: 25 minutes; 15991 x2 (13:20)
[2021-12-19] MEDS: ALPRAZolam 0.5 MG TAB 2 MG PO (21:26)
[2021-12-19] MEDS: Enoxaparin 40 MG/0.4 ML SYR SC (21:26)
[2021-12-19] MEDS: Latanoprost 0.005% 2.5 ML BTL OS (23:33)
[2021-12-20 03:29] VITALS: BP 146/80; PULSE 67; RESP 16; TEMP 36.5; O2SAT 94
[2021-12-20] MEDS: Normal Saline Flush 10 ML SYR IVP ×4 (06:59→23:43)
[2021-12-20 07:39] VITALS: BP 144/79; PULSE 76; RESP 18; TEMP 36.3; O2SAT 95
[2021-12-20] MEDS: Omeprazole 20 MG CAPCR 40 MG PO (09:58)
[2021-12-20] MEDS: Sertraline 50 MG TAB 150 MG PO (10:00)
[2021-12-20] MEDS: Rosuvastatin 10 MG TAB 20 MG PO (10:00)
[2021-12-20] MEDS: Folic Acid 1 MG TAB PO (10:00)
[2021-12-20] MEDS: HYDROcodone 10/Acetaminophen 325 TAB PO ×3 (10:01→18:48)
[2021-12-20 11:23] VITALS: BP 150/85; PULSE 86; RESP 18; TEMP 37.2; O2SAT 96
[2021-12-20] MEDS: Lidocaine 5% Patch 1 PATCH TP ×2 (11:58→18:47)
--- NOTE | 2021-12-20 14:03 | PT.INTREAT ---
Date of service: 12/20/21 Time of Service: 14:03 PT Notes Visit Reasons: Ruptured Appendix Inpatient Physical Therapy Treatment Note [facility] Date: 12/20/2021 PRECAUTIONS: Activity as tolerated. SUBJECTIVE: Cooperative today. Happy to be made independent in her room with FWW, supervision in [facility]. OBJECTIVE:? PAIN: Denies ? BED MOBILITY/TRANSFERS? Sit-stand: Independent ? Stand-sit: Indepednent? GAIT? Assistive Device: FWW? Weight bearing: Full Assist: Supervision? Distance:? 300 feet? Deviation: Tends to lag behind front-wheeled walker, requires moderate cueing for this. Reported fatigue after activity.? ASSESSMENT: Will assess readiness with use of SPC to improve gait mechanics. PLAN: Progress ambulation as tolerated using no assistive device. TREATMENT CODE/TIME: 01167 x 32 minutes beginning at 14:03 PM.
[2021-12-20 15:11] VITALS: BP 137/81; PULSE 74; RESP 16; TEMP 37.1; O2SAT 96
--- NOTE | 2021-12-20 15:43 | W.PM.PROGNOT ---
Date of Service Date of service: 12/20/21 Time of Service: 15:43 Assessment and Plan Assessment and plan (1) S/P exploratory laparotomy: Status: Acute Assessment and plan: I will add some topical lidocaine patches today to help with her surgical discomfort. We need to keep an eye on the Edin-Hussein drain over the next 24 hours. If that volume continues to increase, it might be worth checking it for creatinine. In the meantime, we will also keep the bladder decompressed with a Vallejo. Subjective Subjective Interval history since last seen: She says she felt better 3 yesterday, and was able to ambulate quite a bit yesterday afternoon. She thinks she may have done it with walking in the evening time. She had some increased pain in her back and legs that she says is consistent with her fibromyalgia. She says her abdominal discomfort is improved. She is tolerating some food. She had a normal bowel movement. Exam GI Inspection: non-distended Palpation: soft, no guarding and tender Percussion: normal to percussion Auscultation: normal bowel sounds Other: The incision is clean, and there is no erythema. The output from her TOM drain has increased a little bit, but it looks serous. Objective Last Vital Signs Temp 98.8 F 12/20/21 15:11 Pulse 74 12/20/21 15:11 Resp 16 12/20/21 15:11 BP 137/81 12/20/21 15:11 Pulse Ox 96 12/20/21 15:11
--- NOTE | 2021-12-20 18:14 | PDOC.CMPRO ---
- If Service Date Differs Date of service: 12/20/21 Time of Service: 18:14 Care Management Progress Note S/O: Ofe was sitting up in a chair when CM met with her. She was cordial and agreeable to conversation. Ofe stated that she is feeling like she is making progress. She informed CM that she walked several times yesterday in the hallways. She stated that her pain is better and she is tolerating her diet well. She did say that at baseline she does not eat large meals so it is not unusual that she would only eat small amounts at a time. Ofe talked about her family and what a strong source of support they are for each other. Her daughters, who are both from [place] where Karrie resides, had both been in [place] with her. The daughter that she lives with had to return yesterday to go back to work. Her other daughter Celena will remain with her for several weeks until she can return home. A: 76 year old female admitted to [facility] 12/13/21 for ruptured appendix P: Ofe and her daughter Celena have rented a local condominium for several weeks until Ofe can safely return to [place]. She will follow up with her surgeon here and then with her PCP back home upon her return. Ofe will likely need home health services when discharged through [facility]. CM will continue to support Ofe and assess for ongoing discharge needs.
[2021-12-20 20:00] VITALS: BP 134/84; PULSE 82; RESP 16; TEMP 37.4; O2SAT 97
[2021-12-20] MEDS: ALPRAZolam 0.5 MG TAB 2 MG PO (20:39)
[2021-12-20] MEDS: Acetaminophen 325 MG TAB 650 MG PO (20:40)
[2021-12-20] MEDS: Latanoprost 0.005% 2.5 ML BTL OS (20:40)
[2021-12-20] MEDS: Enoxaparin 40 MG/0.4 ML SYR SC (20:40)
[2021-12-20] MEDS: Patch Removal 1 EACH TP (20:54)
[2021-12-20] MEDS: oxyCODONE 5 MG TAB PO (22:23)
[2021-12-20 23:39] VITALS: BP 144/79; PULSE 77; RESP 22; TEMP 36.7; O2SAT 94
[2021-12-20] MEDS: Pantoprazole 40 MG VIAL IVP (23:43)
[2021-12-21 03:21] VITALS: BP 135/80; PULSE 82; RESP 16; TEMP 36.7; O2SAT 97
[2021-12-21] MEDS: oxyCODONE 5 MG TAB PO ×3 (06:01→17:51)
[2021-12-21 07:56] VITALS: BP 124/78; PULSE 75; RESP 17; TEMP 36.8; O2SAT 95
[2021-12-21] MEDS: Folic Acid 1 MG TAB PO (08:33)
[2021-12-21] MEDS: Rosuvastatin 10 MG TAB 20 MG PO (08:33)
[2021-12-21] MEDS: Sertraline 50 MG TAB 150 MG PO (08:33)
[2021-12-21] MEDS: Omeprazole 20 MG CAPCR 40 MG PO (08:33)
[2021-12-21] MEDS: Acetaminophen 325 MG TAB 650 MG PO ×2 (08:34→15:11)
--- NOTE | 2021-12-21 09:05 | W.PM.PROGNOT ---
Date of Service Date of service: 12/21/21 Time of Service: 09:05 Assessment and Plan Assessment and plan (1) Limited mobility: Status: Acute Assessment and plan: - Patient blames this on neuropathy in her feet. Uncertain of the etiology of neuropathy. Patient is not diabetic PT DISCHARGE RECOMMENDATIONS: [] ? Home with no services [] [X] ? Home with services.? Patient will benefit from home health PT services in order to progress mobility level using least restrictive assistive ambulatory device, assess home safety, identify additional equipment needs, and establish a functional maintenance program that will increase ability of patient to remain at home.? Will assess need for FWW vs. SPC. (2) Atrial fibrillation: Status: Chronic Assessment and plan: NSR today (3) Chronic narcotic use: Status: Acute (4) Acute on chronic blood loss anemia: Status: Acute Assessment and plan: Patient admits to fatigue. She denies any chest pain or shortness of breath when she is up walking. She has limited exercise tolerance. I think this is more to longstanding deconditioning. I discussed with her that in the light of a possible malignancy I am hesitant to transfuse. She did have a black stool today but this was a one-time incidence. Her hemoglobin is been running around 8.5. 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 She underwent cecal ileal resection and primary anastomosis. The tumor was also adhered to the bladder and she underwent resection of this portion of the bladder. Pathology is still pending. High TOM outputs of serous fluid that could be urine. We will check creatinine Postop day #6 for antibiotics. Zosyn was stopped yesterday Continue walking. Patient will need home physical therapy. Vallejo does not come out until at least 12/25. This also depends on the amount of fluid coming out from her TOM. She will also require home RN for TOM care and Vallejo care. Encourage small meals/high-protein diet we discussed with she could expect when going home. And self-cares at home post surgery. Cardiology does recommend full anticoagulation. She would be stable to do so at this point. We will add gabapentin for pain control Plan DC in a.m. Home health referral work she completed (7) Perforated intestine, nontraumatic: Status: Acute (8) Anxiety: Status: Chronic (9) Elevated lipids: Status: Acute (10) Chronic prescription benzodiazepine use: Status: Acute (11) Chronic narcotic use: Status: Acute (12) Chronic back pain: (13) Fibromyalgia: (14) Neuropathy of both feet: Status: Acute Subjective Subjective Interval history since last seen: Pt is doing well. no headaches. No CP or SOB. no productive cough. no dysuria. no leg pain or swelling. She has been tolerating a surgical soft diet. Her bowel movements are soft and she goes 2-4 times a day. She did have a bowel movement this afternoon that was black and heme positive. She complains of pain at night. She still notes that she is swelling in her feet. There is no swelling or pain in her legs. She has been up walking, with encouragement and aid. She notes that her appetite is limited . Patient is sure that this is normal and will improve. Patient also notes fatigue. This is a combination of her low hemoglobin and general postop status. Exam Narrative Exam Narrative: PHYSICAL EXAM GENERAL APPEARANCE: Alert, healthy appearance, oriented, in no acute distress SKIN: No rashes.? No breakdown HYDRATION: Well hydrated HEAD, EYES, EARS, NECK, THROAT: Head is normocephalic, pupils equal, round, reactive to light and accommodation, ocular movement intact, sclera clear and no jaundice. ?Dentition intact. No sore throat.? No jaw pain. No thrush NECK: Supple, Trachea midline. No JVD. Central line site is clean dry and intact. This will be removed today. LUNGS: normal respiration/nl chest excursion. ?Clear to auscultation B/l no R/R/W ?HEART: Regular rate and rhythm, no A. fib today EXTREMITY: No edema or cyanosis? no leg pain, redness, swelling.? No IV infiltration ABDOMEN: Incision is clean dry and intact. There are some redness at the distal end, but I think this is more bruising. We will monitor. Normal bowel sounds TOM-TOM output is serous. It is pretty much the same color as urine. Ouput is decreased today compared to the last 4 days. We will check a creatinine NEURO: no focal neuro deficits. Objective Last Vital Signs Temp 36.8 C 12/21/21 07:56 Pulse 75 12/21/21 07:56 Resp 17 12/21/21 07:56 BP 124/78 12/21/21 07:56 Pulse Ox 95 12/21/21 07:56
[2021-12-21] MEDS: Lidocaine 5% Patch 1 PATCH TP ×2 (09:46→17:51)
--- NOTE | 2021-12-21 11:24 | CMPROGNOTE_ITS ---
- If Service Date Differs Date of service: 12/21/21 Time of Service: 11:24 Care Management Progress Note S/O: Ofe remains pleasant in interaction. No change to overall plan; her daughter Celena will be staying with her in a rented condo at [facility] until she can return home. CM continues to follow. A: 76 year old female admitted to [facility] 12/13/21 for ruptured appendix P: Ofe will discharge to a condo at [facility] with her daughter, Celena. She will have new RN/PT/OT home health orders through [facility], followed by Dr. Farah until Ofe returns to [place] in 4-6 weeks. DC Summary faxed to be faxed to PCP in [place]. Discharge plan reviewed with Ofe and her three children, Geo, Celena and Tavia (returning to [place] today), new SAPPHIREA completed as well. Ofe shared appreciation for her care and stated she was very content with her stay at [facility]. She will transport via private vehicle with her children.
[2021-12-21 11:36] VITALS: BP 147/80; PULSE 71; RESP 17; TEMP 36.9; O2SAT 98
[2021-12-21] MEDS: Normal Saline Flush 10 ML SYR IVP (13:40)
[2021-12-21 15:22] VITALS: BP 137/73; PULSE 79; RESP 14; TEMP 37; O2SAT 98
--- NOTE | 2021-12-21 15:45 | PT.INDS ---
Date of service: 12/21/21 Time of Service: 15:45 PT Notes Visit Reasons: Ruptured Appendix Physical Therapy Inpatient Discharge Summary Date: Dates of service: 12/17/2021 through 12/21/2021 Referring Doctor:? Melanie Farah MD PT Orders: PT CONSULT: Okay to clamp NGT to walk Precautions: Fall. Standard. Activity as tolerated. Patient Profile/Admitting Diagnosis:? Ofe is a 76-year-old female with perforated tumor of ileum and is status post exploratory laparotomy with ileum/cecum resection with primary anastomosis and diversion on postoperative day 3.? Patient is also with admitting diagnoses of acute on chronic blood loss anemia, low folate, chronic narcotic use, bladder neoplasm of uncertain malignant potential, chronic prescription of benzodiazepine, anxiety, and elevated lipase PMHX: All Active Problems?(Updated 12/13/21 @ 22:33 by Melanie Farah DO) Chronic prescription benzodiazepine use (Acute) Chronic narcotic use (Acute) Anxiety (Chronic) Elevated lipids (Acute) Acute perforated appendicitis (Acute) Medical History?(Updated 12/13/21 @ 22:33 by Melanie Farah DO) Chronic back pain Fibromyalgia Surgical History?(Updated 12/13/21 @ 18:41 by Nery Delacruz DO) History of bladder surgery Bladder liftHistory of hysterectomy Hx of cholecystectomy Social History/Home Situation: Originally from [place], here only originally for a week of vacation.? Patient upon discharge will be in the rented house in [place], [place] to recover which the son now rented for the next 5 weeks.? Patient will be with daughter while recuperating.? Independent with all mobility ADLs using a single point cane indoors and outdoors. In her home in [place],? she has 4 steps to enter her bilevel residence with rails on B sides. Equipment Owned/DME: SPC Subjective: Agreeable to trying out SPC inside room.? Objective: General Observation: Supine in bed.? Surgical drain in place.? Vallejo catheter in place.? Central venous line removed this afternoon. Mental Status: Alert and oriented as to person, place, time, and purpose. Able to pay attention, focus, and respond appropriately. Pain: 5-6/10 with walking over surgical incision;? 2-3/10 in B legs Vital Signs: WNL as closely monitored via tele ROM: Right Upper Extremity: ? Shoulder Flexion WFL. Shoulder abduction WFL. Elbow flexion WFL. Wrist flexion WFL. Functional opening and closing of hand WFL. Left Upper Extremity:? Shoulder Flexion WFL. Shoulder abduction WFL. Elbow flexion WFL. Wrist flexion WFL. Functional opening and closing of hand WFL. Right Lower Extremity: Hip flexion lacks the last 25% of AROM due to pain report. Hip abduction WFL. Knee flexion WFL. Ankle dorsiflexion WFL. Ankle plantarflexion WFL. Left Lower Extremity: Hip flexion lacks the last 25% of AROM due to pain report. Hip abduction WFL. Knee flexion WFL. Ankle dorsiflexion WFL. Ankle plantarflexion WFL. Strength: Right Upper Extremity: Shoulder flexors 4/5. Shoulder abductors 4/5. Elbow flexors 4/5. Elbow extensors 4/5. Cardiovascular Lab Director strong. Left Upper Extremity: Shoulder flexors 4/5. Shoulder abductors 4/5. Elbow flexors 4/5. Elbow extensors 4/5. Cardiovascular Lab Director strong. Right Lower Extremity: Hip flexors 3-/5. Hip abductors 4-/5. Knee flexors 4-/5. Knee extensors 4-/5. Ankle dorsiflexors 4-/5. Ankle plantarflexors 4-/5. Left Lower Extremity: Hip flexors 3-/5. Hip abductors 4-/5. Knee flexors 4-/5. Knee extensors 4-/5. Ankle dorsiflexors 4-/5. Ankle plantarflexors 4-/5. Bed Mobility/Transfers: Supine to sit independent Sit to supine independent Sit to stand independent Stand to sit independent Gait: Instructed patient with level surface ambulation of 300 to 600 feet independently. Delaney decreased. Supervision using SPC for in-room ambulation. Balance: Static Sitting: Normal Dynamic Sitting: Normal Static Standing: Good Dynamic Standing: Fair Assessment: Patient now modified independent with use of FWW for all level surface ambulation. She declines being upgraded to using SPC stating that she does not feel safe as of the moment even though she did not show any signs of instability when a SPC was trialled for her this afternoon. Goals: Goals X1 week 1. Supine-Sit independent MET 2. Sit-Supine independent MET 3. Sit-Stand independent MET 4. Stand-Sit independent with SPC NOT MET 5. Bed-Chair independent with SPC NOT MET 6. Chair-Bed independent with SPC NOT MET 7. Independent gait on level surface with use of SPC for at least 300 feet without report of pain nor dyspnea NOT MET 8. Independent stair negotiation while holding onto B rails for at least 15 steps without report of pain nor dyspnea NOT MET 9. Independent with home exercise program NOT MET 10. Good static and dynamic standing balance/tolerance NOT MET Plan of Care/Treatment Plan: 1-2x/day, 7 days/week x 1 week. Plan of care has been reviewed with the AUTO SELF SERVICE STATION ATTENDANT providing the service under Physical Therapy direction. Initiate Physical Therapy intervention for pain management as needed, strengthening, bed mobility, transfers, gait, stairs, balance training, and use of assistive device. DISCHARGE RECOMMENDATIONS: [] ? Home with no services [] [X] ? Home with services.? Patient will benefit from home health PT services in order to progress mobility level using least restrictive assistive ambulatory device, assess home safety, identify additional equipment needs, and establish a functional maintenance program that will increase ability of patient to remain at home.? Will assess need for FWW vs. SPC. [] ? Home with outpatient PT [] [] ? SNF for continued rehabilitation [] [] ? Field Investigator Care [] [] ? SNF versus LTC based on ability to participate and progress [] TREATMENT CODE/TIME: 62854 x 15 minutes beginning at 15:45 PM. Thank you for the opportunity to participate in the care of this patient. Nanci Roldan PT, DPT, CLT [facility] [place], [place]
--- NOTE | 2021-12-21 19:17 | PDOC.HHF2F ---
Home Health Certification Home Health Certification: 1. Encounter Date and Reason I certify that Ofe Woodard was seen by Melanie Farah on 12/22/21 and that I had a [id number] encounter with this patient that meets the physician face to face encounter requirements. 2. Clinical Findings Supporting Skilled Need and Homebound Status I certify that home health services are medically necessary, include either intermittent usp and/or physical/speech therapy, and that this patient is homebound in that absences from the home require considerable and taxing effort and are infrequent or of short duration, or are attributable to the need to receive medical care. [X] (a) Attached documentation from encounter provides clinical findings supporting skilled need and homebound status (including what assistance patient requires to leave the home). The encounter with the patient was in whole, or in part, for the following medical condition, which is the primary reason for home health care: Ruptured Appendix Fdc:medications [facility] Physical Therapy:DISCHARGE RECOMMENDATIONS: [] ? Home with no services [] [X] ? Home with services.? Patient will benefit from home health PT services in order to progress mobility level using least restrictive assistive ambulatory device, assess home safety, identify additional equipment needs, and establish a functional maintenance program that will increase ability of patient to remain at home.? Will assess need for FWW vs. SPC. Speech Therapy: Homebound: 3. Certification and Authentication I certify that I composed the above information based on my clinical judgement relating to this patient's medical condition and, if applicable, clinical findings communicated to me by the NPP or inpatient physician who performed the Home Health Referral. All further orders will be obtained through Dr. Farah. (Community Based Physician - PCP)
[2021-12-21 19:19] VITALS: BP 138/77; PULSE 73; RESP 18; TEMP 37; O2SAT 98
--- NOTE | 2021-12-21 19:40 | W.PM.DS.N ---
Date of service: 12/22/21 Time of Service: 13:07 DS: Diagnosis Discharge Diagnosis (1) Limited mobility: Status: Acute (2) Atrial fibrillation: Status: Chronic (3) Acute on chronic blood loss anemia: Status: Acute (4) Bladder neoplasm of uncertain malignant potential: Status: Acute (5) S/P exploratory laparotomy: Status: Acute (6) Perforated intestine, nontraumatic: Status: Acute (7) Anxiety: Status: Chronic (8) Elevated lipids: Status: Acute (9) Chronic prescription benzodiazepine use: Status: Acute (10) Chronic narcotic use: Status: Acute (11) Chronic back pain: (12) Fibromyalgia: (13) Neuropathy of both feet: Status: Acute Discharge Plan Disposition Patient Disposition: HOME Condition: Stable Discharge Details Reason For Visit: Ruptured tumor of terminal ileum Admit Date/Time: 12/13/21 19:30 Admit Provider: Melanie Farah Attending Provider: Melanie Farah [facility] Hospital Course: see addendum Home Meds and New Rx's Prescriptions: New naloxone 0.4 mg/mL Solution 0.4 mg IVP PRN PRNQty: 1 0RF alprazolam 0.5 mg Tablet 2 mg PO HS Qty: 30 0RF lidocaine 5 % Adhesive Patch,Medicated 1 patch topical Q24H Qty: 30 0RF omeprazole 20 mg Capsule,Delayed Release(Dr/Ec) 40 mg PO DAILY@0730 Qty: 30 0RF sertraline 50 mg Tablet 150 mg PO DAILY@1700 Qty: 30 0RF oxycodone 5 mg Tablet 5 mg PO Q6H PRN PRNQty: 14 0RF rosuvastatin 10 mg Tablet 20 mg PO DAILY Qty: 30 0RF hydrocodone-acetaminophen 10-325 mg tablet 1 tab PO Q8H PRNQty: 90 0RF cephalexin 500 mg capsule 500 mg PO QID 5 Days Qty: 20 0RF Continued sertraline 150 mg capsule 150 mg PO DAILY rosuvastatin 20 mg tablet 20 mg PO DAILY omeprazole 40 mg Capsule,Delayed Release(Dr/Ec) 40 mg PO DIRECTED Rx Instructions: Take before meals. hydrocodone-acetaminophen 10-325 mg Tablet 1 tab PO TID Qty: 90 0RF Held aspirin 81 mg tablet,delayed release (DR/EC) 81 mg PO DAILY Hold Instructions: Resume on 01/01/22. Discontinued alprazolam 2 mg Tablet 2 mg PO QHS Discharge Instructions Instructions: Open Appendectomy (GEN) Additional Instructions: Keep an ice bag on the incision. 20 minutes on and 20 minutes off. Ice keeps the swelling down and swelling causes pain. Make sure you wrap the ice pack in a towel and don't apply directly to the skin. -No driving x1 week or of you are taking narcotic pain medications. -If you have lilibeth or sutures in place, they will be removed at your clinic appointment in 7-10 days. -use walker as needed for stability -Follow-up with Dr. Farah in 1 week. You will need to call the clinic on Friday as the clinic is closed at this time. Phone number: [phone] -soft diet: No beef/pork or raw vegetables x1 -week. Cooked vegetables are fine. No other dietary limitation. -no straining to move bowels -pain meds are very constipating: if you do not move your bowels daily take a dose of OTC Miralax -It is ok to shower. No bathe, soaking, swimming or hot tubs -Keep wound clean and dry. Wash incision with soap and water daily. Pat dry, don't rub. -empty TOM drain twice a day and record output. Please bring the record to your follow-up appointment -Protein supplements daily-boost or Ensure. Use these in between meals, not instead of a meal. You may find that your appetite is smaller. Eat 3-6 small meals throughout the day. It is important to drink lots of water after surgery, 6-10 glasses a day. -If you were given an incentive spirometry (breathing information technology professor?), continue to do this 10x/hour while awake. -We do want you up walking, at least 5-6 times per day. This is very important to prevent pneumonia and blood clots. You can climb stairs, take them slowly. -No lifting over 5 pounds. This is very important to avoid developing a hernia in your incision. -You may find that you are very tired after surgery- this is normal. -Empty Vallejo as needed. Use small reservoir bag during the day and large reservoir bag at night. -Home RN and PT ordered. They will call to schedule appointments to see you. RN should come Friday. PT will probably come on Friday for an intake. -F/u w/ Dr. Farah on in clinic ([facility] across [address] from [facility] [facility]). My office will call on Friday to schedule an appointment. [phone]. -Warning signs: Fever greater than 101 Increasing pain/redness/drainage from the incision Chest pain or shortness of breath Vomiting If these occur, please come to the emergency department. ? Pain Management Protocol -tylenol 1000mg every 8 hours.? Tylenol is an anti-inflammatory.? It is important to take this medication to keep the swelling down.? Swelling is what causes pain. -Use ice.? This also helps to keep swelling down -Ibuprofen 600mg po every 6hours. Take with food. Do not take on empty stomach. ? Do not take aspirin while taking this medication. -lidocaine patches.? one patch change every 24 hrs -Miralax as needed for constipation. ? Do NOT strain to move your bowels!? This is like lifting 50#'s. -Oxycodone, narcotic you can take as needed for pain >7. DO NOT take oxycodone, Xanax, hydrocodone at the same time! Take them at least an hour apart. These medications can cause you to stop breathing. Wound Care Instruction ? Always wash your hands before touching your incision. ? Keep the incision clean, dry, and out of water, keep the incision out of water. ? Do not to pick at the scabs. Scabs help protect the wound. ? You can take a shower in 24 hours and wash the incision with soap and water. Pat dry/don?t scrub. It?s OK to wash around the incision. But don?t spray water directly on it. ? Pat stitches dry if they get wet. Don't rub. ? Check the incision site daily for pain, redness, drainage, swelling, or separation of the incision edges. ? Make sure any clothing that touches the incision is loose-fitting. This will prevent rubbing. If the incision is on the head, keep your child from wearing caps or other head coverings. These may rub against the incision. As your incision heals, the skin may appear pink or red. It may also feel slightly bumpy or raised. This is called a healing ridge. Over time, the color should fade and the raised skin will become less noticeable. When to seek medical care Call your healthcare provider right away if you have any of these: ? More pain, redness, swelling, bleeding, or foul-smelling discharge around the incision area ? Fever of 101?F (38.3?C) or higher, or as directed by your child's healthcare provider ? Shaking chills ? Vomiting or nausea that doesn?t go away ? Numbness, coldness, or tingling around the incision area, or changes in skin color ? Opening of the sutures or wound -Stitches or lilibeth that come apart or fall out or surgical tape falls off before 7 days, or as directed by your healthcare provider ?[facility]: [phone] Edin-Hussein Drain Care:Patient Discharge Instructions What is a Edin-Hussein drain and how does it work? A Edin-Hussein (TOM) drain is used to remove fluids that build up in an area of your body after surgery. The TOM drain is a bulb-shaped device connected to a tube. One end of the tube is placed inside you during surgery. The other end comes out through a small cute in your skin. The bulb is connected to this end. You may have a stitch to hold the tube in place. ? The TOM drain removes fluids by creating suction in the tube. The bulb is squeezed flat and connected to the tube that sticks out of your body. The bulb expands as it fills with fluid. How do I change the bandage around my TOM drain? Wash your hands with soap and water. ? Loosen the tape and gently remove the old bandage. Throw the old bandage into a plastic trash bag. ? Use soap and water to gently cleanse the skin around your TOM drain site. ? Pat the area dry. ? Place a new bandage on your TOM drain site and secure it with medical tape. ? Wash your hands. How do I empty the TOM drain? Wash your hands with soap and water. ? Remove the plug from the bulb. ? Pour the fluid into a measuring cup. ? Squeeze the bulb flat and put the plug back in. The bulb should stay flat until it starts to fill with fluid again. ? Measure the amount of fluid you pour out. Write down how much fluid you empty from the TOM drain and the date and time you collected it. ? Flush the fluid down the toilet. Wash your hands. When will my TOM drain be removed? The amount of fluid that you drain will decrease as your wound heals. The TOM drain is usually removed when less than 30 milliliters (2 tablespoons) is collected in 24 hours. Your physician will notify you of the appropriate time for the drain to be removed. When should I call my caregiver? Call your caregiver if: ? You suddenly stop draining fluid or think that your TOM drain is blocked. ? You have a fever higher than 101.5 degrees. ? You have increased pain,redness, or swelling around the drain site. ? You have questions about your TOM drain care. When should I seek immediate help?Seek immediate help if: ? Your TOM drain breaks or comes out. You have cloudy yellow or brown drainage from your TOM drain site, or the drainage smells bad. Drain 1 Drain 2 Stand Alone Forms: Nursing Discharge Form Referrals: Melanie Farah DO [OSTEOPATHIC DOCTOR] - (Call the office Friday for an appointment time) Activity:: see above Equipment/Supplies:: Walker Diet:: low fiber diet DS: Summary Time Spent with Patient providing and/or coordinating discharge services: Greater than 30 minutes Status at Discharge Functional status at discharge: uses cane/walker Overall status at discharge: patient is progressing back to baseline Mental Status: mental status grossly normal Speech and Movement: speech and movement normal Mood: congruent mood Affect: normal affect Exam Psych Mental Status: mental status grossly normal Speech and Movement: speech and movement normal Mood: congruent mood Affect: normal affect DS: Data Vitals/I&O Vitals and I&O: Vital Signs Temperature 37.0 C 12/21/21 19:19 Temperature Source Tympanic 12/21/21 19:19 Pulse 73 12/21/21 19:19 Pulse Rhythm Regular 12/21/21 15:45 Pulse 74 12/15/21 22:01 Respiratory Rate 18 12/21/21 19:19 Respiratory Effort Non-Labored 12/21/21 15:45 Respiratory Depth Normal 12/21/21 15:45 Respiratory Pattern Normal 12/21/21 15:45 Blood Pressure 138/77 12/21/21 19:19 Blood Pressure Mean 76 12/15/21 22:01 Blood Pressure Position Supine 12/15/21 09:38 Pulse Oximetry 98 12/21/21 19:19 Oxygen Delivery Method Room Air 12/21/21 19:19 Oxygen Flow Rate 0 12/21/21 19:19 Fraction of Inspired Oxygen (FIO2) 28 12/15/21 09:52 Pain Level 7 12/21/21 19:19 Comment 12/20/21 23:39 Arterial Systolic 116 12/15/21 12:00 Arterial Diastolic 50 12/15/21 12:00 Arterial Mean 70 12/15/21 12:00 Intake & Output 12/20/21 12/21/21 12/21/21 23:59 11:59 23:59 Intake Total 960 / 960 500 / 970 470 / 970 Output Total 1380 / 3350 1090 / 2220 1130 / 2220 Balance -420 / -2390 -590 / -1250 -660 / -1250 Intake: IV 30 / 30 30 / 30 Oral 930 / 930 500 / 940 440 / 940 Output: Drainage 130 / 350 140 / 195 55 / 195 Left Abdomen 130 / 350 140 / 195 55 / 195 Urine 1250 / 3000 950 / 2025 1075 / 5 Other: Urine Color Pale Pale Pale Yellow Yellow Urine Appearance Clear Clear Clear Stool Occult Blood Positive Stool Size Small Stool Characteristics Liquid Mucoid Brown Voiding Methods Indwelling Catheter PFSH All Active Problems (Updated 12/21/21 @ 19:17 by Melanie Farah DO) Neuropathy of both feet (Acute) Limited mobility (Acute) Atrial fibrillation (Chronic) Chronic narcotic use (Acute) Low folate (Acute) Acute on chronic blood loss anemia (Acute) 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 Chronic prescription benzodiazepine use (Acute) Chronic narcotic use (Acute) Anxiety (Chronic) Elevated lipids (Acute) Medical History Chronic back pain Fibromyalgia Hx of migraine headaches Surgical History History of bladder surgery Bladder lift History of hysterectomy Hx of cholecystectomy Social History Smoking/Tobacco Use Status: Never Smoking risk assessment performed?: Yes Alcohol Intake: never Drug use: Never Substance use type: does not use Do you feel safe at home: Yes Do you feel safe in your relationship?: Yes
[2021-12-21] MEDS: ALPRAZolam 0.5 MG TAB 2 MG PO (20:51)
[2021-12-21] MEDS: Enoxaparin 40 MG/0.4 ML SYR SC (20:52)
[2021-12-21] MEDS: Ibuprofen 600 MG TAB PO (20:54)
[2021-12-21] MEDS: Latanoprost 0.005% 2.5 ML BTL OS (20:55)
[2021-12-21 23:17] VITALS: BP 131/76; PULSE 78; RESP 17; TEMP 36.6; O2SAT 96
[2021-12-22] MEDS: oxyCODONE 5 MG TAB PO ×3 (00:50→12:50)
[2021-12-22 02:59] VITALS: BP 144/71; PULSE 64; RESP 17; TEMP 36.2; O2SAT 97
[2021-12-22] MEDS: Ibuprofen 600 MG TAB PO (06:05)
[2021-12-22 06:11] LABS: Abs Immature Grans 0.34 10^3/uL (0.0-0.06); Absolute Basophil Count 0.06 10^3/uL (0.0-0.2); Absolute Monocyte Count 0.64 10^3/uL (0.1-0.8); Basophils % 0.7; Eosinophils % 4.5; HCT 27.1 % (36.0-46.0); Immature Grans % 3.8; Lymphocytes % 22.6; MCH 28.9 pg (27.0-33.0); MCHC 33.2 % (32.0-36.0); MCV 87 fL (80-95); MPV 9.3 fL (8.0-11.0); Monocytes % 7.2; Neutrophils % 61.2; Platelet Count 371 10^3/uL (130-400); RBC 3.11 10^6/uL (3.93-5.22); RDW-SD 38.9 fL; WBC 8.84 10^3/uL (4.4-10.8)
[2021-12-22 06:51] LABS: Iron 30 ug/dL (50-170)
[2021-12-22 06:56] VITALS: BP 148/80; PULSE 71; RESP 16; TEMP 36.4; O2SAT 97
[2021-12-22] MEDS: Omeprazole 20 MG CAPCR 40 MG PO (06:56)
[2021-12-22 07:27] LABS: Ferritin 694 ng/mL (8-252)
[2021-12-22] MEDS: Folic Acid 1 MG TAB PO (07:44)
[2021-12-22] MEDS: Rosuvastatin 10 MG TAB 20 MG PO (07:44)
[2021-12-22] MEDS: Lidocaine 5% Patch 1 PATCH TP (09:27)
--- NOTE | 2021-12-22 09:32 | PGE_ITS ---
Date of Service Date of service: 12/22/21 Time of Service: 09:32 Assessment and Plan Assessment and plan (1) S/P exploratory laparotomy: Status: Acute Assessment and plan: Postop day #8 She is tolerating a regular diet and moving her bowels. -She does not appear to be developing a low-grade wound infection and she will be discharged home on Keflex -Her kids have walker and shower chair for her use. -Patient and kids understand how to use and care for Vallejo and TOM drain -Output from TOM is slowly decreasing. It has the same color consistency as her urine. Urinary creatinine is pending still. -I discussed with the patient and her daughter diet/wound care/activity/warning signs today. Please see discharge orders. Follow-up in clinic on They expressed understanding of all and patient is discharged in stable and satisfactory condition. (2) Supraclavicular lymphadenopathy: Status: Acute Assessment and plan: High probability that this represents metastatic tumor. Path report is still pending (3) Neuropathy of both feet: Status: Acute (4) Limited mobility: Status: Acute (5) Atrial fibrillation: Status: Chronic (6) Chronic narcotic use: Status: Acute (7) Low folate: Status: Acute (8) Acute on chronic blood loss anemia: Status: Acute (9) Bladder neoplasm of uncertain malignant potential: Status: Acute (10) Perforated intestine, nontraumatic: Status: Acute (11) Chronic prescription benzodiazepine use: Status: Acute (12) Chronic narcotic use: Status: Acute (13) Anxiety: Status: Chronic (14) Elevated lipids: Status: Acute Subjective Subjective Interval history since last seen: Pt is doing well. no headaches. No CP or SOB. no productive cough. no dysuria. no leg pain or swelling. Exam Narrative Exam Narrative: PHYSICAL EXAM GENERAL APPEARANCE: Alert, healthy appearance, oriented, in no acute distress SKIN: No rashes.? No breakdown HYDRATION: Well hydrated HEAD, EYES, EARS, NECK, THROAT: Head is normocephalic, pupils equal, round, reactive to light and accommodation, ocular movement intact, sclera clear and no jaundice. ?Dentition intact. No sore throat.? No jaw pain. No thrush NECK: Supple, Trachea midline. No JVD. LUNGS: normal respiration/nl chest excursion. ?Clear to auscultation B/l no R/R/W. Patient did show me a supraclavicular lymph node that is enlarged today. It is 2 x 1 cm. Its been there for several months. She had mentioned it to her PCP in [place] and they had been planning a biopsy once she returned from her vacation in [place]. ?HEART: Regular rate and rhythm, EXTREMITY: No edema or cyanosis? no leg pain, redness, swelling.? She does have bruising on her arms from IV start sites/blood draws. These can be treated with warm moist heat ABDOMEN: non tender to palpation, no masses or distention, no hernias. Normal bowel sounds, there is some minimal redness at the most distal portion of the incision. I did remove the lilibeth and try to open the incision to see if there was any fluid collection. It is healing nicely. We will plan on discharging home on Keflex. NEURO: no focal neuro deficits. Objective Last Vital Signs Temp 36.4 C L 12/22/21 06:56 Pulse 71 12/22/21 06:56 Resp 16 12/22/21 06:56 BP 148/80 H 12/22/21 06:56 Pulse Ox 97 12/22/21 06:56 Laboratory Results - last 24 hr 12/22/21 12/22/21 12/22/21 05:51 05:51 05:51 WBC 8.84 RBC 3.11 L Hgb 9.0 L Hct 27.1 L MCV 87 MCH 28.9 MCHC 33.2 RDW 13.0 Plt Count 371 MPV 9.3 Immature Gran % 3.8 Neutrophils % 61.2 Lymphocytes % 22.6 Monocytes % 7.2 Eosinophils % 4.5 Basophils % 0.7 Nucleated RBC % 0.0 Absolute Neutrophils 5.40 Absolute Lymphocytes 2.00 Absolute Monocytes 0.64 Absolute Eosinophils 0.40 Absolute Basophils 0.06 Iron 30 L Ferritin 694 H C-Reactive Protein 2.40 H
[2021-12-22] MEDS: Acetaminophen 325 MG TAB 650 MG PO (10:52)
[2021-12-22 11:19] VITALS: BP 121/64; PULSE 75; RESP 17; TEMP 36.8; O2SAT 98
[2021-12-22] MEDS: Cephalexin 500 MG CAP PO (14:20)
[2021-12-26 11:49] LABS: Creatinine, BF 0.5 mg/dL; Fluid Type JP DRAIN
== END 2021-12-22 14:29 | disposition home or self-care (01) | DRG 823 ==
LOC: ER 20:09 → MS 20:27 → ICU 12-14 12:28 → MS 12-15 22:46
PROVIDERS: Family Medicine; Surgery; Admitting Provider Surgery; Emergency Provider Physician Assistant; Visit Provider Surgery
PROC: 0DTJ4ZZ Resection of Appendix, Percutaneous Endoscopic Approach (ICD-10-PCS; CPT 44970; principal; 2021-12-14 09:00)
DX: K63.1 Perforation of intestine (nontraumatic); D62 Acute posthemorrhagic anemia; M79.7 Fibromyalgia; Z79.891 Long term (current) use of opiate analgesic; F41.9 Anxiety disorder, unspecified; E78.5 Hyperlipidemia, unspecified; M54.9 Dorsalgia, unspecified; F13.90 Sedative, hypnotic, or anxiolytic use, unspecified, uncomplicated; G43.909 Migraine, unspecified, not intractable, without status migrainosus; Z53.31 Laparoscopic surgical procedure converted to open procedure; K66.0 Peritoneal adhesions (postprocedural) (postinfection); E53.8 Deficiency of other specified B group vitamins; I48.91 Unspecified atrial fibrillation; I44.1 Atrioventricular block, second degree; D41.4 Neoplasm of uncertain behavior of bladder; R26.2 Difficulty in walking, not elsewhere classified; C85.13 Unspecified B-cell lymphoma, intra-abdominal lymph nodes
CPT/HCPCS: 44160; 36415; 71045; 76942; 80048; 80053; 83690; 84145; 85027; 86850; 86900; 86901; 87040; 87635; 88305; 88341; 88360; 88368; 88377; 93306; 96361; 96365; 96375; 97162; 97530; 99222; 99285; J1650; 74177; 81003; 82570; 82607; 82728; 82746; 83540; 83550; 83605; 83735; 85025; 86140; 87070; 87075; 87205; 88307; 88309; 88361; 93005; 93010; 99232; J0131; J1100; J1756; J2060; J2250; J2270; J2370; J2405; J2543; J2704; J3475; J3480; J3490

== ENCOUNTER 2021-12-26 14:19 | Emergency (ER) | payer MEDICARE, SELFPAY ==
[2021-12-26 14:22] VITALS: BP 133/81; PULSE 72; RESP 20; O2SAT 99
[2021-12-26 14:36] VITALS: RESP 16
--- NOTE | 2021-12-26 14:52 | SCONE_ITS ---
Date of service: 12/26/21 Time of Service: 14:52 Assessment and Plan Assessment and plan (1) Wound dehiscence, surgical: Status: Acute Assessment and plan: Ofe is here because she had some bloody discharge from her distal wound.She has a 1 cm wound dehisence. There was drainage of serosanguinous fluid. The wound was probed with a sterile q-tip and the fascia felt intact. There was some erythema at the distal incision. She was started on Augmentin yesterday. Plan- Packing placed into the wound. Large fluffy dressing applied. Follow up tomorrow with Dr. Farah History of Present Illness Narrative: Mrs Woodard is back to the ER because her distal incision opened up while she was on the toilet and bloody discharge squirted out. She has no N/V or worsening pain. She is eating better then she was. She is having Bm's. She was placed on Augmentin yesterday for cellulitis of the distal incision. Review of Systems Constitutional Constitutional: Denies fever(s), Denies headache(s), Denies poor appetite and Denies weight loss Eyes Eyes: Denies change in vision ENT Ears, Nose, Mouth, and Throat: Reports system reviewed and no additional complaints, except as documented and Denies headache(s) Cardiovascular Cardiovascular: Denies chest pain Respiratory Respiratory: Reports system reviewed and no additional complaints, except as documented Gastrointestinal Gastrointestinal: Reports as per HPI Genitourinary Genitourinary: Reports system reviewed and no additional complaints, except as documented Musculoskeletal Musculoskeletal: Reports system reviewed and no additional complaints, except as documented Integumentary/Breasts Skin/Breast: Reports system reviewed and no additional complaints, except as documented Neurologic Neurologic: Denies headache(s) [facility] All Active Problems (Updated 12/26/21 @ 15:02 by Jael Rios MD) Wound dehiscence, surgical (Acute) 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 Chronic prescription benzodiazepine use (Acute) Chronic narcotic use (Acute) Anxiety (Chronic) Elevated lipids (Acute) Medical History Chronic back pain Fibromyalgia Hx of migraine headaches Surgical History History of bladder surgery Bladder lift History of hysterectomy Hx of cholecystectomy Social History Smoking/Tobacco Use Status: Never Smoking risk assessment performed?: Yes Alcohol Intake: never Drug use: Never Substance use type: does not use Do you feel safe at home: Yes Do you feel safe in your relationship?: Yes Exam Const General: comfortable and no acute distress Nutritional Appearance: average body habitus Orientation: alert and oriented x3 HENMT Head: normocephalic and atraumatic Resp Effort & Inspection: normal respiratory effort Auscultation: clear to auscultation bilaterally Cardio Rate: regular rate Rhythm: regular rhythm GI Inspection: incision (there is erythema at the distal end of the incision.) and other (serosanguinous discharge from the incision. NO purulent discharge) Other: Erythema of the lower incision was marked The wound was irrigated with 20 cc of saline. The wound was probed with a qtip and the fascia felt intact. Results Last Vital Signs Pulse 72 12/26/21 14:22 Resp 16 12/26/21 14:36 BP 133/81 12/26/21 14:22 Pulse Ox 99 12/26/21 14:22 Labs Result diagrams: 12/26/21 14:49 12/26/21 14:49
--- NOTE | 2021-12-26 14:57 | ED.GENADUL_ITS ---
Discharge Plan Disposition Patient Disposition: HOME Condition: Stable Discharge Details Clinical Impression: Post-operative complication ED Provider: Jasmyn Mota Home Meds and New Rx's Prescriptions: Continued sertraline 150 mg capsule 150 mg PO DAILY rosuvastatin 20 mg tablet 20 mg PO DAILY aspirin 81 mg tablet,delayed release (DR/EC) 81 mg PO DAILY Hold Instructions: Resume on 01/01/22. amoxicillin-pot clavulanate 875-125 mg tablet 1 tab PO BID Qty: 14 0RF omeprazole 40 mg Capsule,Delayed Release(Dr/Ec) 40 mg PO DIRECTED Rx Instructions: Take before meals. naloxone 0.4 mg/mL Solution 0.4 mg IVP PRN PRNQty: 1 0RF alprazolam 0.5 mg Tablet 2 mg PO HS Qty: 30 0RF lidocaine 5 % Adhesive Patch,Medicated 1 patch topical Q24H Qty: 30 0RF omeprazole 20 mg Capsule,Delayed Release(Dr/Ec) 40 mg PO DAILY@0730 Qty: 30 0RF sertraline 50 mg Tablet 150 mg PO DAILY@1700 Qty: 30 0RF oxycodone 5 mg Tablet 5 mg PO Q6H PRN PRNQty: 14 0RF rosuvastatin 10 mg Tablet 20 mg PO DAILY Qty: 30 0RF hydrocodone-acetaminophen 10-325 mg Tablet 1 tab PO TID Qty: 90 0RF hydrocodone-acetaminophen 10-325 mg tablet 1 tab PO Q8H PRNQty: 90 0RF Discharge Instructions Instructions: [facility] (ED) Additional Instructions: Follow the instructions given to you by general surgery here today. Your incision was reinforced with dressings. Please keep your previously scheduled appointment with Dr. Farah tomorrow. Continue taking your antibiotics and pain medications. Return to the ER for any other concerns or worsening. Referrals: Melanie Farah DO [OSTEOPATHIC DOCTOR] - 1 day Medical Decision Making [id number]: Dr. Rios with Surgery here to see patient. See her orders and note. Incision was reinforced by Dr. Rios with dressings and some packing was placed. Dr. Arzate requested labs to rule out severe systemic infection. She is already taking antibiotics. Patient is requesting to be discharged home does not want to be admitted. HPI General Mode of arrival: EMS . Date/Time Provider Initiated Documentation: 12/26/21 14:33 . Limitations to Documentation: no limitations . Information obtained by: patient, family, RN/MD, RN notes reviewed and old records reviewed . HPI Narrative: 76-year-old female presents to the ER via EMS with chief complaint of drainage and postop complication from a previous perforated intestine surgery she has a TOM drain noted and a midline abdominal vertical incision with sutures in place. She denies any drainage surrounding the area. Patient was seen by surgery upon arrival to the department. Dr. Rios is here and placed lab orders. There is mild cellulitis noted surrounding the incision. Patient feels well otherwise she reports that she had a long walk yesterday. She has a follow-up appointment in the office tomorrow. Related Data Home Medications Medication Instructions Recorded Confirmed aspirin 81 mg tablet,delayed 81 mg PO DAILY 12/13/21 12/26/21 release omeprazole 40 mg capsule,delayed 40 mg PO DIRECTED 12/13/21 12/26/21 release rosuvastatin 20 mg tablet 20 mg PO DAILY 12/13/21 12/26/21 sertraline 150 mg capsule 150 mg PO DAILY 12/13/21 12/26/21 alprazolam 0.5 mg tablet 2 mg PO HS #30 tabs 12/22/21 12/26/21 hydrocodone 10 mg-acetaminophen 1 tab PO Q8H PRN #90 tabs 12/22/21 12/26/21 325 mg tablet hydrocodone 10 mg-acetaminophen 1 tab PO TID #90 tabs 12/22/21 12/26/21 325 mg tablet lidocaine 5 % topical patch 1 patch topical Q24H #30 ea 12/22/21 12/26/21 naloxone 0.4 mg/mL injection 0.4 mg IVP PRN PRN #1 mL 12/22/21 12/26/21 solution omeprazole 20 mg capsule,delayed 40 mg PO DAILY@0730 #30 caps 12/22/21 12/26/21 release oxycodone 5 mg tablet 5 mg PO Q6H PRN PRN #14 tabs 12/22/21 12/26/21 rosuvastatin 10 mg tablet 20 mg PO DAILY #30 tabs 12/22/21 12/26/21 sertraline 50 mg tablet 150 mg PO DAILY@1700 #30 tabs 12/22/21 12/26/21 amoxicillin 875 mg-potassium 1 tab PO BID #14 tabs 12/24/21 12/26/21 clavulanate 125 mg tablet Previous Rx's Medication Instructions Recorded alprazolam 0.5 mg tablet 2 mg PO HS #30 tabs 12/22/21 hydrocodone 10 mg-acetaminophen 1 tab PO Q8H PRN #90 tabs 12/22/21 325 mg tablet hydrocodone 10 mg-acetaminophen 1 tab PO TID #90 tabs 12/22/21 325 mg tablet lidocaine 5 % topical patch 1 patch topical Q24H #30 ea 12/22/21 naloxone 0.4 mg/mL injection 0.4 mg IVP PRN PRN #1 mL 12/22/21 solution omeprazole 20 mg capsule,delayed 40 mg PO DAILY@0730 #30 caps 12/22/21 release oxycodone 5 mg tablet 5 mg PO Q6H PRN PRN #14 tabs 12/22/21 rosuvastatin 10 mg tablet 20 mg PO DAILY #30 tabs 12/22/21 sertraline 50 mg tablet 150 mg PO DAILY@1700 #30 tabs 12/22/21 amoxicillin 875 mg-potassium 1 tab PO BID #14 tabs 12/24/21 clavulanate 125 mg tablet Allergies Allergy/AdvReac Type Severity Reaction Status Date / Time hydromorphone AdvReac Intermediate really bad Unverified 12/26/21 14:30 migraine General Stated Complaint: [facility] ANGELICA: 3 Review of Systems All systems reviewed & are unremarkable except as noted in HPI and below Integumentary/Breasts Skin/Breast: Reports as per HPI PFSH All Active Problems (Updated 12/26/21 @ 15:25 by Jasmyn Mota NP) Post-operative complication (Acute) Wound dehiscence, surgical (Acute) 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 Chronic prescription benzodiazepine use (Acute) Chronic narcotic use (Acute) Anxiety (Chronic) Elevated lipids (Acute) Medical History Chronic back pain Fibromyalgia Hx of migraine headaches Surgical History History of bladder surgery Bladder lift History of hysterectomy Hx of cholecystectomy Social History Smoking/Tobacco Use Status: Never Smoking risk assessment performed?: Yes Alcohol Intake: never Drug use: Never Substance use type: does not use Do you feel safe at home: Yes Do you feel safe in your relationship?: Yes Exam Narrative Exam Narrative: Patient examined by Dr. Rios. Central abdominal vertical incision with lilibeth noted TOM drain with clear yellow drainage noted. There is some surrounding erythema to the distal incision. Patient is otherwise alert and oriented x4, has no other complaints reports that she felt very well yesterday. Course Vital Signs Vital signs: Vital Signs Pulse 72 12/26/21 14:22 Respiratory Rate 20 12/26/21 14:22 Blood Pressure 133/81 12/26/21 14:22 Pulse Oximetry 99 12/26/21 14:22 Temperature Source Temporal Artery Scan 12/26/21 14:22 Pulse 72 12/26/21 14:22 Respiratory Rate 16 12/26/21 14:36 Respiratory Effort Non-Labored 12/26/21 14:36 Respiratory Depth Normal 12/26/21 14:36 Respiratory Pattern Normal 12/26/21 14:36 Blood Pressure 133/81 12/26/21 14:22 Blood Pressure Position Sitting 12/26/21 14:22 Pulse Oximetry 99 12/26/21 14:22 Oxygen Delivery Method Room Air 12/26/21 14:22 Oxygen Flow Rate 0 12/26/21 14:22
[2021-12-26 15:00] LABS: Abs Immature Grans 0.06 10^3/uL (0.0-0.06); Absolute Basophil Count 0.07 10^3/uL (0.0-0.2); Absolute Eosinophil Count 0.33 10^3/uL (0.0-0.7); Absolute Lymphocyte Count 1.85 10^3/uL (1.2-3.4); Absolute Monocyte Count 0.95 10^3/uL (0.1-0.8); Basophils % 0.6; Eosinophils % 2.9; HCT 29.8 % (36.0-46.0); HGB 9.6 g/dL (11.2-15.7); Immature Grans % 0.5; Lymphocytes % 16.4; MCH 29.1 pg (27.0-33.0); MCHC 32.2 % (32.0-36.0); MCV 90 fL (80-95); MPV 9.3 fL (8.0-11.0); Monocytes % 8.4; Neutrophils % 71.2; Platelet Count 442 10^3/uL (130-400); RDW 14.1 % (11.7-14.6); RDW-SD 44.7 fL; WBC 11.26 10^3/uL (4.4-10.8)
[2021-12-26] MEDS: HYDROcodone 10/Acetaminophen 325 TAB PO (15:00)
[2021-12-26 15:05] LABS: Absolute Neutrophil Count 8.02 10^3/uL (1.2-6.7)
[2021-12-26 15:18] LABS: ALT 23 U/L (14-59); AST 19 U/L (15-37); Albumin 2.8 g/dL (3.4-5.0); Alkaline Phosphatase 80 U/L (46-116); BUN 9 mg/dL (7-18); Bilirubin, Total 0.3 mg/dL (0.2-1.0); CREATININE 0.7 mg/dL (0.55-1.02); Calcium 8.8 mg/dL (8.5-10.1); Chloride 106 mmol/L (98-107); Glucose 102 mg/dL (74-106); Potassium 3.8 mmol/L (3.5-5.1); Sodium 140 mmol/L (136-145)
[2021-12-26 15:43] VITALS: BP 121/75; PULSE 71; RESP 20; O2SAT 98
== END 2021-12-26 16:04 | disposition home or self-care (01) ==
LOC: ER 16:04
PROVIDERS: Surgery; Emergency Provider Registered Nurse Emergency
DX: T81.31XA Disruption of external operation (surgical) wound, not elsewhere classified, initial encounter (principal); Y83.8 Other surgical procedures as the cause of abnormal reaction of the patient, or of later complication, without mention of misadventure at the time of the procedure
CPT/HCPCS: 36415; 80053; 99283; 85025; J3490

== ENCOUNTER → 2021-12-27 09:51 | Outpatient (BNVA) | payer MEDICARE, SELFPAY | PROVIDERS: Visit Provider Surgery | DX: T81.31XA Disruption of external operation (surgical) wound, not elsewhere classified, initial encounter (principal); T81.49XA Infection following a procedure, other surgical site, initial encounter; C85.19 Unspecified B-cell lymphoma, extranodal and solid organ sites; R59.0 Localized enlarged lymph nodes; D62 Acute posthemorrhagic anemia ==

== ENCOUNTER → 2021-12-28 13:24 | Outpatient (BNVA) | payer MEDICARE, SELFPAY | PROVIDERS: Visit Provider Surgery | DX: D41.4 Neoplasm of uncertain behavior of bladder (principal); T83.091A Other mechanical complication of indwelling urethral catheter, initial encounter ==